=== PATIENT | female | born 1935 | race Caucasian/White ===

== ENCOUNTER 2016-05-18 10:09 | Observation (INO) | payer MEDICARE, BC ==
--- NOTE | 2016-05-18 11:21 | RAD ---
INDICATION: TIA symptoms COMPARISON: None TECHNIQUE: Noncontrast axial source images were acquired from the skull base to the vertex. FINDINGS: Ventricles/sulci: There is mild age-related cortical atrophy with compensatory dilatation of the CSF spaces. Brain parenchyma: There is mild periventricular and subcortical white matter change compatible with chronic ischemia. Intracranial hemorrhage:None. Extra-axial spaces: There are no abnormal extra axial fluid collections or evidence of extra-axial mass. Calvarium: There is no calvarial fracture or other calvarial abnormality. Scalp: There is no evidence of scalp or extracalvarial soft tissue abnormality. Paranasal sinuses/mastoid: The paranasal sinuses and mastoid air cells are clear. Other: None. IMPRESSION: CORTICAL ATROPHY WITH CHRONIC MICROVASCULAR ISCHEMIC CHANGES. NO ACUTE FINDINGS.
[2016-05-18 11:46] LABS: Hematocrit 41 % (35-47); Hemoglobin 13.7 g/dl (12.0-16.0); Mean Corpuscular HGB Conc 34 g/dl (31-36); Mean Corpuscular Hemoglobin 29 pg (27-31); Mean Corpuscular Volume 85 fL (80-97); Mean Platelet Volume 9 um3 (7.4-10.4); Red Blood Count 4.75 10^6/ul (4.0-5.4); Red Cell Distribution Width 14 % (10.5-15); White Blood Count 7.8 10^3/ul (3.5-10.8)
[2016-05-18 12:10] LABS: Albumin 3.9 g/dL (3.2-5.2); BUN/Creatinine Ratio 23.3 (8-20); EGFR Non-African American 51.3 (>60); Globulin 2.7 g/dL (2-4); Potassium 4.1 mmol/L (3.5-5.0); Total Bilirubin 1.8 mg/dL (0.2-1.0); Total Protein 6.6 g/dL (6.4-8.9)
[2016-05-18] MEDS ORDERED: Metoprolol Tartrate IV* 1 MG/ML 5 ML VIAL IV ONE (13:02)
[2016-05-18] MEDS ORDERED: Aspirin TAB* 325 MG PO ONE (13:02)
[2016-05-18] MEDS ORDERED: Ondansetron INJ* 2 MG/ML VIAL IV PRN (14:07)
[2016-05-18] MEDS: Lisinopril TAB* 10 MG PO SCH (14:40)
[2016-05-18] MEDS: amLODIPine TAB* 5 MG PO SCH (14:40)
--- NOTE | 2016-05-18 15:32 | RAD ---
HISTORY: Hypertension COMPARISONS: July 31, 2002 VIEWS:1: Single frontal portable view of the chest at 3:05 PM FINDINGS: LINES AND TUBES: None. CARDIOMEDIASTINAL SILHOUETTE: The cardiomediastinal silhouette is normal for portable technique. PLEURA: The costophrenic angles are sharp. No pleural abnormalities are noted. LUNG PARENCHYMA: There is hyperinflation. ABDOMEN: The upper abdomen is clear. There is no subphrenic gas. BONES AND SOFT TISSUES: No bone or soft tissue abnormalities are noted. IMPRESSION: NO ACTIVE CARDIOPULMONARY DISEASE.
[2016-05-18] MEDS ORDERED: hydrALAZINE IV* 20 MG/ML VIAL IV SLOW PU PRN (16:04)
--- NOTE | 2016-05-18 16:46 | RAD ---
Indication: Left-sided numbness. Sagittal and axial T1, axial T2, FLAIR, diffusion and susceptibility weighted images of the brain were obtained. Ventricular structures are midline. No midline shift is noted. There is central and cortical atrophy noted. There is no evidence of intracranial mass or hemorrhage. No other high or low signal lesions are identified. No restriction of diffusion is noted. Periventricular signal abnormalities consistent with chronic ischemic White matter change is noted. Mastoid air cells and paranasal sinuses are unremarkable. IMPRESSION: FINDINGS CONSISTENT WITH SMALL VESSEL ISCHEMIC DISEASE. NO ACUTE CHANGES ARE NOTED.
[2016-05-18] MEDS: Acetaminophen TAB* 325 MG PO PRN (18:06)
[2016-05-18] MEDS: Carbamide Peroxide 6.5% OTIC* 15 ML BTL LEFT EAR SCH ×2 (19:27→21:20)
--- NOTE | 2016-05-18 19:43 | HP ---
HISTORY AND PHYSICAL: DATE OF ADMISSION: 05/18/16 PRIMARY CARE PROVIDER: Dr. Herrmann. ATTENDING PHYSICIAN WHILE IN THE HOSPITAL: Williams Ly MD*(report dictated by Gus Blue NP). CONSULTING NEUROLOGIST: Dr. Dumont. CHIEF COMPLAINT: 1. Left-sided decreased sensation. 2. Elevated blood pressure. HISTORY OF PRESENT ILLNESS: Ms. Cadet is an 80-year-old female patient with a history of hypertension, atrial fibrillation in the past, history of kidney stones and bladder cancer. She comes in today stating that over the last week, she had a cystoscopy for what she says a spot on her bladder. Since then, she has been having difficulty with her blood pressure. It has been elevated at times despite her taking her medications. She states that she has had a headache off and on, and in addition to this, has had some left-sided ear pain and swelling of the left gland. She does state that she noticed today she woke up, her blood pressure was very elevated. Yesterday, she took actually 80 mg of her lisinopril thinking that that would bring it down but her blood pressure remained elevated despite this and it has been all week, it was up in the 200 systolically. She did not take her lisinopril today because she took so much yesterday. She was concerned and went to her primary to get help with her blood pressure management. She was evaluated by her primary. The primary was concerned because she was complaining mostly today of having a left-sided decreased sensation in the face, arm, and the leg. She says that she has not had any facial drooping. There has been no weakness to one side and there has been no trouble with gait or balance and there has been no trouble with speech. She came to the ER. She was evaluated. It was noted that her blood pressures again were in the 200s and the hospitalist service was asked to evaluate for admission. She also does admit to having spots in her left eye. She denies having any chest pain and she does admit to having some dyspnea on exertion, but no orthopnea, nocturnal dyspnea, or swelling in her legs. PAST MEDICAL HISTORY: Significant for: 1. Hypertension. 2. Nephrolithiasis. 3. AFib. 4. Bladder cancer. PAST SURGICAL HISTORY: 1. She has had an appendectomy. 2. Laparoscopic cholecystectomy. 3. Cataracts. 4. Nephrectomy. 5. Cystoscopy. HOME MEDICATIONS: Include: 1. Sodium citrate and citric acid 10 mg p.o. b.i.d. 2. Multivitamin 1 tablet daily. 3. Metoprolol XL 50 mg daily. 4. Lisinopril 20 mg daily. 5. Aspirin 81 mg daily. ALLERGIES TO MEDICATIONS: Include SULFA. FAMILY HISTORY: Mother had a history of heart disease and colon cancer. Father had a history of liver disease. SOCIAL HISTORY: She does not smoke. She drinks a glass of wine daily. Surrogate decision maker is her , Lion. REVIEW OF SYSTEMS: There is no documented fever. She denied having any significant weight change. There was no double vision. There is no ear discharge. She denies having any rhinorrhea. There is no sore throat. There is no thyroid enlargement. She did admit to having some dyspnea on exertion. No chest pain. No orthopnea. No nocturnal dyspnea. There is no abdominal pain. There is no nausea. There is no vomiting. There was no dysuria. No frequency. No seizure. No loss of consciousness. No pruritus and no skin ulcerations. Review of 14 systems completed, all others negative. PHYSICAL EXAMINATION GENERAL: At this time, Ms. Cadet is an 80-year-old female patient. She is sitting in the ER stretcher. She does not appear to be in any acute distress. She is awake and alert. She is oriented x3. VITAL SIGNS: Blood pressure 204/107 with a pulse of 75, respirations 18, O2 sat 97%, and temperature 97.8. HEENT: Head is atraumatic and normocephalic. Eyes: EOMs intact. Sclerae are anicteric and not pale. Throat: Oral mucosa appears to be moist. No oropharyngeal erythema. NECK: Supple. LUNGS: Clear to auscultation. No wheezes, rales, or rhonchi. HEART: Sounds S1, S2. Regular rate and rhythm. No murmurs, rubs, or gallops. ABDOMEN: Soft, flat, and nontender. Bowel sounds present. EXTREMITIES: Pulses 2+ throughout. She is able to move all 4 extremities with 5/5 strength. NEUROLOGIC: The patient is awake, alert, and oriented x3. Her speech is clear. Tongue is midline. Hoe Runner are equal. Rmysgv-ys-bisz intact bilaterally. Heel-to- valle intact bilaterally. She did have some sensation deficit on the left side subjectively at this point. SKIN: Grossly intact. LABORATORY DATA AND DIAGNOSTIC STUDIES: Today revealed a WBC of 7.8, RBC of 4.75, hemoglobin 13.7, hematocrit of 41, platelet count 233. INR 0.96. PTT 28.7. Sodium was 140, potassium 4.1, chloride of 107, bicarb 27, BUN 24, creatinine of 1.03, glucose 101, lactic 0.9, calcium 10. Total bilirubin 1.8, AST 14, ALT 10, alk phos 51. Troponin 0. Albumin 3.9. She had an EKG obtained today, which showed sinus bradycardia at a rate of 58. She had T-wave flattening in 1, 2, and 3 and aVF; inversion in V4 and V5 and biphasics in V6. It was reviewed with the previous, it is similar. The biphasic T waves in V6 is new. There are no other significant changes from her previous EKG. Brain CT obtained today showed cortical atrophy with chronic microvascular ischemic change. No acute findings. Old medical records were reviewed. ASSESSMENT AND PLAN: Ms. Cadet is an 80-year-old female patient coming in to the ER today with complaints of decreased sensation to her left side. On evaluation in the ER, it was noted that her blood pressures were in the 200s, it is now 193/84. Hospitalist service was asked to evaluate in admission due to the elevated blood pressure and concern for hypertensive urgency and focal neuro findings. She will be admitted under observation status for: 1. Hypertensive urgency: At this point, I would like to get her blood pressure in the 160 range. I will go ahead and just give her Norvasc now and give her lisinopril. She did not take this. She got 5 of Lopressor already. We will monitor. If this does not help, I will add on p.r.n. hydralazine and will continue to follow. I suspect the numbness she is having is from the blood pressure. I will get an echo as well. 2. Left-sided decreased sensation: I will go ahead and check an MRI on the patient. At this point, we will get neuro checks, lipid panel, A1c. Aspirin has been started. Neuro consult. In addition to this, place her on telemetry and we will get an MRI. 3. Atrial fibrillation: Again, she has a history of this. She is in sinus rhythm now, we will monitor on telemetry and will follow. 4. Bladder cancer: Follow up with her primary. 5. Kidney stones: Follow up with her primary. 6. DVT prophylaxis: I am going to place her on SCDs. I do not want to place her on heparin with her blood pressure being in the 200s. 7. Code status: Full code. 8. Fluids, electrolytes, and nutrition: She can be on a heart healthy diet. TIME SPENT: Time spent on the admission was approximately 60 minutes; greater than half the time was spent [id number] with the patient obtaining my history and physical, other half the time spent going over the plan of care with the patient and implementing plan of care. I did discuss the plan of care with my attending, Dr. Ly; he is in agreement. GUS BLUE NP CC: Dr. Herrmann; Dr. Dumont * [id number]/[facility] #: [id number] MTDTami
[2016-05-18 20:03] LABS: Urine Bacteria Absent (Absent); Urine Bilirubin Negative (Negative); Urine Glucose Negative (Negative); Urine Nitrite Negative (Negative)
[2016-05-18] MEDS: Heparin VIAL(*) 5000 UNITS/ML VIAL (FIVE THOUSAND) SUBCUT SCH (21:20)
--- NOTE | 2016-05-19 00:18 | CONS ---
NEUROLOGY CONSULTATION REPORT: DATE OF CONSULT: 05/18/16 REQUESTING PROVIDER: Gus Blue NP PRIMARY CARE PHYSICIAN: Dr. Tomasz Herrmann. REASON FOR CONSULT: Left-sided numbness. HISTORY OF PRESENT ILLNESS: The patient is an 80-year-old right-handed female with history of hypertension, who has been having unusually elevated blood pressure since she had a cystoscopy last week. Along with that, she had some intermittent headache and also some pain and discomfort around the left sub- mandibular area and swelling of a left gland and also pain in the ears. She went to her primary care physician today, who sent her to the ER because of the concern of report of some numbness in the left side of the face and probably arm. Upon conversation with the patient, however, she did not report a clear "numbness" in the arms or legs, but felt that the left side of her face probably feels a bit different compared to the right side. She denies any other associated symptoms such as no blurry vision, dysarthria, dizziness, weakness in the arms and legs. In the ED her blood pressure was found to be high with systolic in the range of 170 to 200 mmHg. PAST MEDICAL HISTORY: 1. Hypertension. 2. AFib. 3. Possibly bladder cancer. 4. Kidney stone. 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 Laparoscopic cholecystectomy. 2. Appendectomy. 3. Nephrectomy of the left side due to a benign cyst. 4. Cataract surgery. MEDICATIONS: Include at home: 1. Multivitamin. 2. Vitamin C. 3. Metoprolol XL 50 mg daily. 4. Lisinopril 20 mg p.o. daily. 5. Aspirin 81 mg p.o. daily. ALLERGIES: To SULFA DRUGS. FAMILY HISTORY: There is a history of heart disease and cancer in her mother. No clear neurological history in the family. SOCIAL HISTORY: No history of smoking. She drinks a glass of wine almost daily. REVIEW OF SYSTEMS: Complete review of systems was performed and other than what mentioned in HPI is negative. PHYSICAL EXAM: Temperature 97.5, pulse rate 60, respiratory rate 16, O2 sat 99% , blood pressure 209/107. On neurological exam, the patient is awake, alert, and oriented x3. Pupils are symmetric and reactive to light. Extraocular movements are intact. Visual aguilera are intact to confrontation. Face is symmetric. Tongue is midline. Palate elevates upwards. V1 to V3 are intact to light touch and pinprick on the right side. On the left side, there is a slight decrease to pinprick sensation in the V1 and V2 distribution. There is some mild tenderness in the left submandibular area but no clear lymph node was palpated. Strength is 5/5 throughout. There is no pronator drift. V1 to V3 are intact to light touch and pinprick on the right side. On the left side, her response to sensory exam is inconsistent and there is sometimes decreased sensation in some parts of the arm compared to the right. Sensation is intact to lower extremities bilaterally. [id number] is intact. Rapid alternative movements are intact. DIAGNOSTIC STUDIES/LAB DATA: WBC 7.8, hemoglobin 13.7, hematocrit 41. Sodium 141, potassium 4.1, BUN 24, creatinine 1.03. Urine is negative. INR is 0.96. Imaging: An MRI of the brain shows findings consistent with small vessel ischemic disease with no acute changes. ASSESSMENT AND PLAN: An 80-year-old female with history of hypertensive urgency , presented with symptoms of vague sensory change in the left side of the face and probably somewhat in the arm. On neurological exam, there are no clear findings suggestive of a central pathology. MRI is negative for an acute stroke but some small vessel ischemic changes were found. There is a mild tenderness around the left parotid gland, or probably in the submandibular area on the left side. She probably may need some more imaging investigation such as soft tissue CT of the neck. Otherwise, there are no clear neurological deficits concerning for vascular events at this time. CC: Dr. Tomasz Herrmann* [id number]/[facility] #: [id number] MTDD
[2016-05-19] MEDS: Acetaminophen TAB* 325 MG PO PRN (03:29)
[2016-05-19 06:06] LABS: Hematocrit 37 % (35-47); Hemoglobin 12.7 g/dl (12.0-16.0); Mean Corpuscular HGB Conc 35 g/dl (31-36); Mean Corpuscular Hemoglobin 29 pg (27-31); Mean Corpuscular Volume 85 fL (80-97); Mean Platelet Volume 9 um3 (7.4-10.4); Red Blood Count 4.33 10^6/ul (4.0-5.4); Red Cell Distribution Width 14 % (10.5-15); White Blood Count 5.8 10^3/ul (3.5-10.8)
[2016-05-19] MEDS: Heparin VIAL(*) 5000 UNITS/ML VIAL (FIVE THOUSAND) SUBCUT SCH ×2 (06:07→15:59)
[2016-05-19 06:27] LABS: BUN/Creatinine Ratio 21.9 (8-20); Calcium 9.4 mg/dL (8.6-10.3); EGFR African American 71.6 (>60); EGFR Non-African American 55.6 (>60); HDL Cholesterol 43.4 mg/dL; Potassium 3.6 mmol/L (3.5-5.0)
--- NOTE | 2016-05-19 08:28 | RAD ---
HISTORY: Left parotid and submandibular tenderness, left facial numbness COMPARISONS: None TECHNIQUE: Multiple contiguous axial CT scans were obtained of the neck without intravenous contrast, with coronal and sagittal multiplanar reformations. FINDINGS: The study is limited by the lack of intravenous contrast. This limits evaluation of the solid organs and vasculature. BRAIN AND ORBITS: The visualized brain and orbits are normal. PARANASAL SINUSES: There is mucosal thickening of a sphenoethmoidal air cell on the right SALIVARY GLANDS: The parotid glands, submandibular glands, sublingual glands are normal. There is no appreciable sialolithiasis or salivary ductal dilatation, though evaluation of the distal ducts is limited by streak artifact from dental hardware. NASAL CAVITY/NASOPHARYNX: The nasal cavity and nasopharynx are normal. ORAL CAVITY/OROPHARYNX: The oral cavity is obscured by streak artifact from dental amalgam. The visualized oral cavity and oropharynx are unremarkable. LARYNGEAL APPARATUS/HYPOPHARYNX: The laryngeal apparatus and hypopharynx are normal. UPPER AIRWAY/UPPER ESOPHAGUS: The visualized upper airway and esophagus are normal. LUNG APICES: The lung apices are clear. THYROID GLAND: There are multiple thyroid nodules measuring up to 0.7 cm m in size. The thyroid is heterogeneous and somewhat atrophic. LYMPH NODES: There is no lymphadenopathy by size criteria. VASCULATURE: The vasculature is unremarkable. BONES AND SOFT TISSUES: Degenerative changes are noted most pronounced at C5-C6. OTHER: None. IMPRESSION: 1. NO APPRECIABLE SIALOLITHIASIS OR SALIVARY DUCTAL DILATATION. 2. MULTIPLE THYROID NODULES. RECOMMEND CORRELATION WITH DEDICATED IMAGING OF THE THYROID.
[2016-05-19] MEDS: Lisinopril TAB* 10 MG PO SCH (08:37)
[2016-05-19] MEDS: amLODIPine TAB* 5 MG PO SCH (08:38)
[2016-05-19] MEDS: Carbamide Peroxide 6.5% OTIC* 15 ML BTL LEFT EAR SCH (08:40)
[2016-05-19] MEDS ORDERED: Aspirin Low Dose CHEW TAB* 81 MG PO SCH (09:00)
[2016-05-19] MEDS ORDERED: Metoprolol Succinate XL TAB* 50 MG PO SCH (09:00)
--- NOTE | 2016-05-19 13:32 | PN ---
Progress Note - Progress Note SOAP: 05/19/16 neurology progress note 80 yo chronic HTN, chronic afib, admitted after finding herself hypertensive on home check (SBP up to 200s) and in context of headaches, resolved sensory symptoms (billed as numbness; she was seen by dr lackey over the weekend; his consult noted more vague pain and sensory issues; she tells me today it was neck pain, and also mentions feeling an eye blink discrepancy in the context of remotely operated redundant eylid folds). She had no hard lateralizing or focal complaints or exam findings, and negative CT/MRI; she was not felt to have had a publishing manager vascular event. She is on a baby ASA at baseline. Asked to eval by [facility] team re discussion for possible nursing home anticoag.no use of gait assist devices. Her neuro exam is non localizing; she has redundant eyelid folds Chem, cbc, aic, lipids are all normal; she had a normal ESR 09/11. Neck CT was neg for salivary stones or issues (done for facial sensory pains/complaints as above); cxr neg; mri brain neg (reviewed and modest microvasc disease and couple tiny microbleeds only; no acute stroke) i/p: 80 yo presenting with resolved headaches and poorly localizing pain/sensory complaints in context of chronic HTN. Exam and imaging negative; concur with colleague that does not sounds like a stroke or TIA. Nonetheless, she has a history of afib, and is a reasonable candidate for nursing home use of a NOAC for stroke primary prevention, same as with chronic nursing home BP control; the [facility] hospital attending and I reviewed these issues with the patient and her , and the [facility] team will coordinate further discussion with the patients PMD. From a neuro perspective she can be discharged home.
--- NOTE | 2016-05-19 16:37 | ECHO ---
Patient: CARMELA WALL [facility] Rec#: [id number] : 1935 Date: 05/19/2016 Age: 80y Height: 167.64 cm / 66.0 in Weight: 71.21 kg / 156.9 lbs Sex: F BSA: 1.8 Room#: [facility] Admit Date#: 05/18/2016 Type: Inpatient Referring: Gus Blue NP Reading: Kendall Santiago MD [employer]: Kostas Eric RDCS Transthoracic Echocardiogram Indication: HTN BP: 129/67 HR: 71 Rhythm: NSR Findings History: HTN,AFIB Technical Comments: The study quality is fair. Left Ventricle: The left ventricular chamber size is normal. Mild concentric left ventricular hypertrophy is observed. Global left ventricular wall motion and contractility are within normal limits. There is normal left ventricular systolic function. The estimated ejection fraction is 55-60%. Abnormal left ventricular diastolic filling is observed, consistent with impaired relaxation. Left Atrium: The left atrial chamber size is normal. Right Ventricle: The right ventricular cavity size is normal. The right ventricular global systolic function is normal. Right Atrium: The right atrial cavity size is normal. Aortic Valve: The aortic valve is trileaflet. There is no evidence of aortic regurgitation. There is no evidence of aortic stenosis. Mitral Valve: The mitral valve leaflets appear normal. There is no evidence of mitral regurgitation. There is no evidence of mitral stenosis. Tricuspid Valve: The tricuspid valve structure is not well visualized. Pulmonic Valve: The pulmonic valve structure is not well visualized. Pericardium: There is no pericardial effusion. Aorta: There is no dilatation of the ascending aorta. There is no dilatation of the aortic arch. There is no dilation of the aortic root. Pulmonary Artery: The main pulmonary artery is not well visualized. Venous: The venous system is not well visualized. The inferior vena cava is not visualized. Summary: There was not any prior study for comparison. Conclusions Global left ventricular wall motion and contractility are within normal limits. There is normal left ventricular systolic function. The estimated ejection fraction is 55-60%. Abnormal left ventricular diastolic filling is observed, consistent with impaired relaxation. There is no evidence of aortic regurgitation. There is no evidence of mitral regurgitation. The tricuspid valve structure is not well visualized. There is no pericardial effusion. There was not any prior study for comparison. Measurements Name Value Normal Range RVIDd (AP) 2D 2.2 cm (0.9 - 2.6) RVDdMajor (2D) 2.8 cm (2.2 - 4.4) RAd ISD 4CH 4.1 cm (3.4 - 4.9) RA (A4C)W 2.8 cm (2.9 - 4.6) IVSd (2D) 1.3 cm (0.6 - 1) LVPWd (2D) 1.1 cm (0.6 - 1) LVIDd (2D) 5.1 cm (3.6 - 5.4) LVIDs (2D) 3.4 cm - LV FS (2D) 33 % (25 - 45) Aortic Annulus 1.8 cm (1.4 - 2.6) Ao root diameter (2D) 2.9 cm (2.1 - 3.5) Ascending Ao 2.8 cm (2.1 - 3.4) Aortic arch 1.7 cm (1.8 - 3.4) LA dimension (AP) 2D 3.7 cm (2.3 - 3.8) LAd ISD 4CH 4.5 cm (2.9 - 5.3) LA ISD 4CH W 2.8 cm (2.5 - 4.5) Name Value Normal Range LA ESV SP 4CH (A/L) 33 ml - LA ESV SP 2CH (A/L) 41 ml - LA ESV BP (A/L) 37 ml - LA ESV BP (A/L) index 20.66 ml/m2 - LA ESV SP 4CH (MOD) 31 ml - LA ESV SP 2CH (MOD) 39 ml - Name Value Normal Range MV E-wave Vmax 0.56 m/sec - MV deceleration time 239 msec - MV A-wave Vmax 0.76 m/sec - MV E:A ratio 0.74 ratio - LV septal e' Vmax 0.04 m/sec - LV lateral e' Vmax 0.04 m/sec - LV E:e' septal ratio 14 ratio - LV E:e' lateral ratio 14 ratio - Name Value Normal Range LVOT diameter 1.9 cm - LVOT Vmax 0.9 m/sec - Name Value Normal Range PV Vmax 0.64 m/sec -
[2016-05-19 16:49] VITALS: BP 128/64
[2016-05-19] MEDS ORDERED: Rivaroxaban TAB(*) 20 MG TAB PO SCH (17:00)
[2016-05-19 18:41] LABS: TSH (Thyroid Stimulating Horm) 4.98 mcIU/mL (0.34-5.60)
--- NOTE | 2016-05-20 04:27 | DS ---
DISCHARGE SUMMARY: DATE OF ADMISSION: 05/18/16 DATE OF DISCHARGE: 05/19/16 DISCHARGE DIAGNOSES: 1. Hypertensive urgency. 2. Atypical facial pain. 3. Incidental findings of thyroid nodules. SECONDARY DIAGNOSES: 1. Hypertension. 2. Nephrolithiasis. 3. Atrial fibrillation. 4. History of bladder carcinoma. 5. Report of severe sepsis secondary to urinary tract infection in July 2015 at [facility]. 6. Status post appendectomy. 7. Status post lap cholecystotomy. 8. Status post cataract surgery. 9. Status post nephrectomy. 10. Status post cystoscopy. MEDICATION LIST: 1. Lisinopril 20 mg p.o. daily. 2. Metoprolol succinate 50 mg p.o. daily. 3. Multivitamin 1 tablet p.o. daily. 4. Sodium citrate and citric acid 10 mg p.o. b.i.d. NEW MEDICATIONS: 1. Amlodipine 10 mg p.o. daily. 2. Xarelto 20 mg p.o. daily. HOSPITAL COURSE: Mrs. Cadet is an 80-year-old lady with a past medical history as stated above who presented to the emergency room with complaints of left-sided ear pain and a "prickly" sensation on her left side of her face. The patient is also having elevated blood pressures at home. The day prior to admission, the systolic blood pressure was in the 200s and she took an extra dose of her lisinopril, but her numbers remained elevated. She contacted her PCP and was referred to the emergency room. For more details about her presentation, I refer you to her history and physical. The patient had the CT of the brain that showed cortical atrophy with chronic microvascular ischemic changes, but no acute findings. She also had an MRI of the brain that showed findings consistent with small vessel ischemic disease, no acute changes were noted. The patient was admitted for blood pressure control as her blood pressure in the emergency room was 210/93. She was seen consultation by Neurology (Dr. Dumont) and his impression was that the patient was an 80-year-old female with history of hypertensive urgency that presented with symptoms of vague sensory change in the left side of the face and probably somewhat in her arms. On neurological exam, there are no clear findings suggestive of a central pathology. MRI is negative for an acute stroke, but some small vessel ischemic changes were found. There is mild tenderness around the left parotid gland or probably in the submandibular area on the left side. He recommended a soft tissue CT of the neck, but otherwise he did not feel there was a clear neurological deficit concerning for vascular event at that time. Amlodipine was added to the patient's regimen with good blood pressure control and the plan is to continue it as outpatient. The patient did have a CT of the soft tissues of the neck without contrast that showed no appreciable sialolithiasis or ductal dilatation. She had an incidental findings of multiple thyroid nodules and she can have dedicated imaging of the thyroid as outpatient. Please note her TSH level was added to her labs but the result is pending at the time of this dictation and will need to be followed as outpatient. On physical examination, the patient does have some pain on palpation of the TMJ area and this may be the source of her discomfort. The patient has a history of atrial fibrillation. She states that she was diagnosed more than 15 years ago, she does not even remember which doctor diagnosed her. She is on aspirin at this time and her CHADS2 score at this time is 4 (hypertension, age, sex). I discussed with the patient the indication for anticoagulation. She was seen in consultation by Neurology (Dr. Payne). He concurred with Dr. Dumont that her symptoms did not sound like a stroke or TIA, but nonetheless she has a history of AFib, is a reasonable candidate for long-term use of a NOAC for a stroke primary prevention same with chronic long-term blood pressure control. I discussed the case with her primary care provider, Dr. Herrmann, and after reviewing risks and benefits, the patient is in agreement with starting Xarelto for stroke prevention. She was educated about the risks of bleeding, but she understands that at this time, the benefit surpasses the risks. The patient also had a transthoracic echocardiogram that showed ejection fraction of 55% to 60%, no evidence of aortic regurgitation, no evidence of mitral regurgitation, no pericardial effusion. The patient was felt to be stable for discharge at this time to follow up with Dr. Herrmann on 05/22/16 at 1:00 p.m. PHYSICAL EXAMINATION: Vital signs: Temperature 98.2, heart rate is 66, respiratory rate is 16, oxygen saturation 98% on room air, blood pressure is 128 /64. General: The patient is a pleasant elderly lady, lying in bed, in no acute distress. CVS: Normal S1 and S2. Regular rate and rhythm. Chest: Breath sounds present bilaterally with no added sounds. Abdomen: Soft, nontender, nondistended. Bowel sounds are present. Extremities: No edema. Neuro: She is alert, awake, oriented x3. Able to move all 4 extremities. DIET: Healthy diet. ACTIVITY: Activities as tolerated. DISPOSITION: To home. STATUS WHILE IN THE HOSPITAL: Observation. Please keep in mind that this is a summarized version of this patient's hospital stay. If you need more information, please feel free to call me at or please obtain the full medical records. TIME SPENT: Approximately 45 minutes were spent to complete this discharge. CC: Dr. Herrmann; Dr. Kendall, [place], [place], phone number [phone]* [id number]/CPS #: [id number] MTDD
--- NOTE | 2016-05-30 21:18 | ED ---
Baltazar Perez Alok, scribed for Emile Salinas MD on 05/18/16 at 1327 . Hypertension - HPI Summary HPI Summary: 80 y/o female presents to the ED with concern of her hypertension. She states that for the last few days her BP has been fairly high. On top of this, pt also reports feeling some chills, as well as some tingling sensations on the left side of her face, ear and neck. Additionally, pt reports SOB on exertion for the past 2-3 days. She denies any trouble speaking, ambulating, chest pain, fever, diaphoresis, abd pain, diarrhea as well as no recent changes in medication. She states that she normally takes 20 mg of Lisinopril per day, but took twice as much yesterday in order to try and lower BP to little effect. - History of Current Complaint Chief Complaint: EDShortnessOfBreath Stated Complaint: HIGH BP Time Seen by Provider: 05/18/16 11:02 Hx Obtained From: Patient Onset/Duration: Started Days Ago, Atraumatic, Still Present Associated Signs & Symptoms: SOB - Allergies/Home Medications Allergies/Adverse Reactions: Allergies Allergy/AdvReac Type Severity Reaction Status Date / Time Sulfa Drugs Allergy Intermediate Hives Verified 05/18/16 10:12 Home Medications: Home Medications Aspirin EC Low Dose* [Ecotrin EC Low Dose*] 81 mg PO DAILY 05/18/16 [History Confirmed 05/18/16] Lisinopril TAB* [Prinivil TAB*] 20 mg PO DAILY 05/18/16 [History Confirmed 05/18] Sodium Citrate & Citric Acid [Virtrate-2 500-334 mg/5Ml] 10 mg PO BID 05/18/16 [ History Confirmed 05/18/16] PMH/Surg Hx/FS Hx/Imm Hx - Surgical History Surgery Procedure, Year, and Place: RIGHT TKA. CHOLECYSTECTOMY. RIGHT KIDNEY REMOVED @ age 24. ureter stent placement & removal Jan 2016 Infectious Disease History: No Infectious Disease History: Denies: Traveled Outside the [place] in Last 30 Days - Family History Known Family History: Negative: Diabetes - Social History Alcohol Use: None Alcohol Amount: one wine Substance Use Type: Reports: None Smoking Status (MU): Former Smoker Review of Systems Positive: Chills. Negative: Fever, Skin Diaphoresis Negative: Erythema Negative: Sore Throat Negative: Chest Pain Positive: Shortness Of Breath. Negative: Cough Negative: Abdominal Pain, Vomiting, Diarrhea, Nausea Negative: dysuria, hematuria Negative: Myalgia, Edema Negative: Rash Neurological: Other - Negative: Dizziness Positive: Paresthesia - tingling left side of face Negative: Anxious All Other Systems Reviewed And Are Negative: Yes Physical Exam - Summary Physical Exam Summary: Constitutional: Well-developed, Well-nourished, Alert. (-) Distressed Skin: Warm, Dry HENT: Normocephalic; Atraumatic Eyes: Conjunctiva normal Neck: Musculoskeletal ROM normal neck. (-) JVD, (-) Stridor, (-) Tracheal deviation Cardio: Rhythm regular, rate normal, Heart sounds normal; Intact distal pulses; The pedal pulses are 2+ and symmetric. Radial pulses are 2+ and symmetric. (-) Murmur Pulmonary/Chest wall: Effort normal. (-) Respiratory distress, (-) Wheezes, (-) Rales Abd: Soft, (-) Tenderness, (-) Distension, (-) Guarding, (-) Rebound Musculoskeletal: (-) Edema Lymph: (-) Cervical adenopathy Neuro: Alert, Oriented x3 Psych: Mood and affect Normal Triage Information Reviewed: Yes Vital Signs On Initial Exam: Initial Vitals Temp Pulse Resp BP Pulse Ox 97.8 F 64 16 196/98 100 05/18/16 10:13 05/18/16 10:13 05/18/16 10:13 05/18/16 10:13 05/18/16 10:13 Vital Signs Reviewed: Yes - Jerome Coma Scale Coma Scale Total: 15 Diagnostics - Vital Signs Vital Signs Temp Pulse Resp BP Pulse Ox 05/18/16 12:00 57 162/76 96 05/18/16 11:45 58 158/79 96 05/18/16 11:30 59 164/79 99 05/18/16 11:21 60 187/86 98 05/18/16 11:00 58 98 05/18/16 10:48 59 183/74 99 05/18/16 10:35 62 95 05/18/16 10:33 210/93 05/18/16 10:13 97.8 F 64 16 196/98 100 - Laboratory Lab Results: Lab Results 05/18/16 05/18/16 05/18/16 Range/Units 10:40 10:40 10:40 WBC 7.8 (3.5-10.8) 10^3/ul RBC 4.75 (4.0-5.4) 10^6/ul Hgb 13.7 (12.0-16.0) g/dl Hct 41 (35-47) % MCV 85 (80-97) fL MCH 29 (27-31) pg MCHC 34 (31-36) g/dl RDW 14 (10.5-15) % Plt Count 232 (150-450) 10^3/ul MPV 9 (7.4-10.4) um3 Neut % (Auto) 68.9 (38-83) % Lymph % (Auto) 16.6 L (25-47) % Hardee % (Auto) 8.1 (1-9) % Eos % (Auto) 5.4 (0-6) % Baso % (Auto) 1.0 (0-2) % Absolute Neuts (auto) 5.4 (1.5-7.7) 10^3/ul Absolute Lymphs (auto) 1.3 (1.0-4.8) 10^3/ul Absolute Monos (auto) 0.6 (0-0.8) 10^3/ul Absolute Eos (auto) 0.4 (0-0.6) 10^3/ul Absolute Basos (auto) 0.1 (0-0.2) 10^3/ul Absolute Nucleated RBC 0 10^3/ul Nucleated RBC % 0 INR (Anticoag Therapy) (0.89-1.11) APTT (26.0-36.3) seconds Sodium 141 (133-145) mmol/L Potassium 4.1 (3.5-5.0) mmol/L Chloride 107 (101-111) mmol/L Carbon Dioxide 27 (22-32) mmol/L Anion Gap 7 (2-11) mmol/L BUN 24 (6-24) mg/dL Creatinine 1.03 H (0.51-0.95) mg/dL Est GFR ( Amer) 66.0 (>60) Est GFR (Non-Af Amer) 51.3 (>60) BUN/Creatinine Ratio 23.3 H (8-20) Glucose 101 H (70-100) mg/dL Lactic Acid 0.9 (0.5-2.0) mmol/L Calcium 10.0 (8.6-10.3) mg/dL Total Bilirubin 1.80 H (0.2-1.0) mg/dL AST 14 (13-39) U/L ALT 10 (7-52) U/L Alkaline Phosphatase 61 (34-104) U/L Troponin I 0.00 (<0.04) ng/mL Total Protein 6.6 (6.4-8.9) g/dL Albumin 3.9 (3.2-5.2) g/dL Globulin 2.7 (2-4) g/dL Albumin/Globulin Ratio 1.4 (1-3) 05/18/16 Range/Units 10:40 WBC (3.5-10.8) 10^3/ul RBC (4.0-5.4) 10^6/ul Hgb (12.0-16.0) g/dl Hct (35-47) % MCV (80-97) fL MCH (27-31) pg MCHC (31-36) g/dl RDW (10.5-15) % Plt Count (150-450) 10^3/ul MPV (7.4-10.4) um3 Neut % (Auto) (38-83) % Lymph % (Auto) (25-47) % Hardee % (Auto) (1-9) % Eos % (Auto) (0-6) % Baso % (Auto) (0-2) % Absolute Neuts (auto) (1.5-7.7) 10^3/ul Absolute Lymphs (auto) (1.0-4.8) 10^3/ul Absolute Monos (auto) (0-0.8) 10^3/ul Absolute Eos (auto) (0-0.6) 10^3/ul Absolute Basos (auto) (0-0.2) 10^3/ul Absolute Nucleated RBC 10^3/ul Nucleated RBC % INR (Anticoag Therapy) 0.96 (0.89-1.11) APTT 28.7 (26.0-36.3) seconds Sodium (133-145) mmol/L Potassium (3.5-5.0) mmol/L Chloride (101-111) mmol/L Carbon Dioxide (22-32) mmol/L Anion Gap (2-11) mmol/L BUN (6-24) mg/dL Creatinine (0.51-0.95) mg/dL Est GFR ( Amer) (>60) Est GFR (Non-Af Amer) (>60) BUN/Creatinine Ratio (8-20) Glucose (70-100) mg/dL Lactic Acid (0.5-2.0) mmol/L Calcium (8.6-10.3) mg/dL Total Bilirubin (0.2-1.0) mg/dL AST (13-39) U/L ALT (7-52) U/L Alkaline Phosphatase (34-104) U/L Troponin I (<0.04) ng/mL Total Protein (6.4-8.9) g/dL Albumin (3.2-5.2) g/dL Globulin (2-4) g/dL Albumin/Globulin Ratio (1-3) Result Diagrams: 05/18/16 10:40 05/18/16 10:40 Lab Statement: Any lab studies that have been ordered have been reviewed, and results considered in the medical decision making process. - CT CT Brain CT Interpretation: Positive (See Comments) - IMPRESSION: CORTICAL ATROPHY WITH CHRONIC MICROVASCULAR ISCHEMIC CHANGES. NO ACUTE FINDINGS. CT Interpretation Completed By: Radiologist - EKG 10:25 Cardiac Rate: Bradycardia EKG Rhythm: Sinus Bradycardia - 58 bpm Hypertension Course/Dx - Diagnoses Provider Diagnoses: Hypertensive urgency, CVA (cerebral vascular accident), SOB (shortness of breath) - Critical Care Time Critical Care Time: 30-74 min - 35 minutes Discharge - Discharge Plan Condition: Stable Disposition: ADMITTED TO [facility] Referrals: Tomasz Herrmann MD [Primary Care Provider] - The documentation as recorded by the Baltazar anderson Alok accurately reflects the service I personally performed and the decisions made by , Emile Salinas MD.
== END 2016-05-19 17:45 | disposition home or self-care (01) ==
LOC: ED 10:09 → MEDTELE 13:33 → ED 14:36
PROVIDERS: ADMIT Internal Medicine; ATTEND Internal Medicine
DX: I16.0 Hypertensive urgency (principal); R51 Headache; E04.1 Nontoxic single thyroid nodule; M62.81 Muscle weakness (generalized); I48.91 Unspecified atrial fibrillation; R00.1 Bradycardia, unspecified; I67.82 Cerebral ischemia; Z85.51 Personal history of malignant neoplasm of bladder; Z88.2 Allergy status to sulfonamides; Z79.01 Long term (current) use of anticoagulants; Z79.899 Other long term (current) drug therapy
CPT/HCPCS: 36415; 70450; 70490; 70551; 71010; 80048; 80053; 80061; 81003; 81015; 83036; 83605; 84443; 84484; 85025; 85610; 85730; 87086; 93005; 93306; 96372; 96374; 99284; A9270-GY; G0378; J1644; J3490

== ENCOUNTER 2016-10-02 00:39 | Observation (INO) | payer MEDICARE, BC ==
[2016-10-02] MEDS ORDERED: NS 0.9% 1000 ML* 1,000 ML IV ONE (00:59)
[2016-10-02 01:25] LABS: Hematocrit 34 % (35-47); Hemoglobin 11.6 g/dl (12.0-16.0); Mean Corpuscular HGB Conc 34 g/dl (31-36); Mean Corpuscular Hemoglobin 30 pg (27-31); Mean Corpuscular Volume 89 fL (80-97); Mean Platelet Volume 9 um3 (7.4-10.4); Red Blood Count 3.87 10^6/ul (4.0-5.4); Red Cell Distribution Width 13 % (10.5-15); White Blood Count 7.3 10^3/ul (3.5-10.8)
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
[2016-10-02 01:40] LABS: Albumin 3.2 g/dL (3.2-5.2); BUN/Creatinine Ratio 25.2 (8-20); C Reactive Protein 4.03 mg/L (< 5.00); Calcium 9.1 mg/dL (8.6-10.3); EGFR African American 65.8 (>60); EGFR Non-African American 51.2 (>60); Globulin 2.1 g/dL (2-4); Magnesium 1.8 mg/dL (1.9-2.7); Potassium 3.8 mmol/L (3.5-5.0); Total Bilirubin 0.8 mg/dL (0.2-1.0); Total Protein 5.3 g/dL (6.4-8.9)
[2016-10-02] MEDS ORDERED: Acetaminophen TAB* 325 MG PO PRN (02:12)
[2016-10-02] MEDS ORDERED: NS 0.9% 1000 ML* 1,000 ML IV SCH (02:15)
[2016-10-02] MEDS ORDERED: Melatonin (NF) 3 MG TAB PO PRN (02:15)
[2016-10-02] MEDS ORDERED: Ondansetron INJ* 2 MG/ML VIAL IV PRN (02:16)
--- NOTE | 2016-10-02 02:20 | HP ---
H&P (Free Text) History and Physical: PCP: Jose Daniel Herrmann MD Date/Time of Evaluation: 10/02/2016 0200 CC: rectal bleeding HPI: Mrs Cadet is an 81YO female HX AFIB who self-D/C'd her rivaroxaban 3weeks ago due to bleeding after cystoscopy followed by an episode of epistaxis. [facility] went [facility] for [facility]oscopy with polypectomy x2, a 10mm cecal polyp removed with hot snare and clipped and a 6mm transverse polyp removed with hot BX forceps. Diverticulosis and mild internal hemorrhoids were also noted. She did well the remainder of the day until ~1900 when she developed abdominal cramping and a total of 7 bright red bowel movements for which she called the number given by [facility] and was advised to come straight to the ED. Upon arrival to [facility], she felt the urge to defecate and was assisted to the restroom where she had an 8th blood bowel movement resulting in syncope followed by 2 bloody stools once back in her ED room. Pressures were initially hypotensive, but rebounded with IVFs. She has developed some nausea in the ED, but no emesis, chest pain, SOB, palpitations, or other complaints. PMedHx bladder CA s/p cystoscopic resection & planning to start BCG instillation soon, followed by urology in [place] pAFIB self D/C'd rivaroxaban 3weeks ago 2nd post-cystoscopic bleeding and an episode of epistaxis HTN urolithiasis s/p R nephrectomy for infection & stones diverticulosis internal hemorrhoids Ambulatory Orders Metoprolol Succinate XL TAB* [Toprol XL TAB*] 50 mg PO DAILY 01/08/13 Multivitamins/Minerals TAB* [Thera M Plus TAB*] 1 tab PO DAILY 03/25/16 Lisinopril TAB* [Prinivil TAB 10 MG*] 20 mg PO DAILY 05/18/16 Allergies Sulfa Drugs Allergy (Intermediate, Verified 10/02/16 00:41) Hives SWELLING OF EYES AND TONGUE PSurgHx cataract extraction cholecystectomy R nephrectomy 2nd infected stone at age 24 appendectomy R TKA SocHx: no tobacco, 1 glass wine daily, no recreational drugs; lives with her ; DNR/I code status FamHx: Mother: late 80s, CAD, colon CA; Father: age 51, hepatitis & liver failure ROS: as above, otherwise reviewed and all were negative Constitutional: NAD, normally developed, well-nourished elderly female vitals: Vital Signs Temp 36.4 C 10/02/16 00:49 Pulse 70 10/02/16 01:31 Resp 13 10/02/16 01:31 BP 95/54 10/02/16 01:30 Pulse Ox 96 10/02/16 01:31 Intake & Output 10/01/16 10/01/16 10/02/16 11:59 23:59 11:59 Weight 70.307 kg Other: Date of Last Bowel 10/02/16 Movement Estimated Stool Amount Large HEENM: atraumatic; sclera/conjunctiva: non-icteric/clear; hearing: clinically intact; oropharynx: clear, mucosa tacky Neck: soft tissue: non-tender; thyroid: normal Pulmonary: clear to auscultation bilaterally, good aeration, no accessory muscle use CV: RR/RR, normal S1S2, no carotid bruit, no jugular venous distention, 2+ B DP/ PT, no edema Abdominal: soft, non-distended, non-tender, no rebound/guarding/rigidity, normoactive bowel sounds, no hepatosplenomegaly or masses, no costovertebral angle tenderness Musculoskeletal: general: grossly intact; gait: unsafe to ambulate Integumental: normal appearance and texture of exposed skin, no over pallor Psychiatric orientation: AA&O to PPS affect: calm mood: cooperative eye contact: good content: reliable responses: timely insight: good to fair Testing: Lab Results 10/02/16 10/02/16 10/02/16 Range/Units 01:13 01:13 01:13 WBC 7.3 (3.5-10.8) 10^3/ul RBC 3.87 L (4.0-5.4) 10^6/ul Hgb 11.6 L (12.0-16.0) g/dl Hct 34 L (35-47) % MCV 89 (80-97) fL MCH 30 (27-31) pg MCHC 34 (31-36) g/dl RDW 13 (10.5-15) % Plt Count 210 (150-450) 10^3/ul MPV 9 (7.4-10.4) um3 Neut % (Auto) 56.0 (38-83) % Lymph % (Auto) 28.6 (25-47) % [place] % (Auto) 10.1 H (1-9) % Eos % (Auto) 4.1 (0-6) % Baso % (Auto) 1.2 (0-2) % Absolute Neuts (auto) 4.1 (1.5-7.7) 10^3/ul Absolute Lymphs (auto) 2.1 (1.0-4.8) 10^3/ul Absolute Monos (auto) 0.7 (0-0.8) 10^3/ul Absolute Eos (auto) 0.3 (0-0.6) 10^3/ul Absolute Basos (auto) 0.1 (0-0.2) 10^3/ul Absolute Nucleated RBC 0.01 10^3/ul Nucleated RBC % 0.1 INR (Anticoag Therapy) (0.89-1.11) Sodium 139 (133-145) mmol/L Potassium 3.8 (3.5-5.0) mmol/L Chloride 110 (101-111) mmol/L Carbon Dioxide 25 (22-32) mmol/L Anion Gap 4 (2-11) mmol/L BUN 26 H (6-24) mg/dL Creatinine 1.03 H (0.51-0.95) mg/dL Est GFR ( Amer) 65.8 (>60) Est GFR (Non-Af Amer) 51.2 (>60) BUN/Creatinine Ratio 25.2 H (8-20) Glucose 155 H (70-100) mg/dL Lactic Acid 1.8 (0.5-2.0) mmol/L Calcium 9.1 (8.6-10.3) mg/dL Magnesium 1.8 L (1.9-2.7) mg/dL Total Bilirubin 0.80 (0.2-1.0) mg/dL AST 15 (13-39) U/L ALT 11 (7-52) U/L Alkaline Phosphatase 55 (34-104) U/L C-Reactive Protein 4.03 (< 5.00) mg/L Total Protein 5.3 L (6.4-8.9) g/dL Albumin 3.2 (3.2-5.2) g/dL Globulin 2.1 (2-4) g/dL Albumin/Globulin Ratio 1.5 (1-3) Lipase 54 (11.0-82.0) U/L Blood Type Antibody Screen 10/02/16 10/02/16 Range/Units 01:13 01:13 WBC (3.5-10.8) 10^3/ul RBC (4.0-5.4) 10^6/ul Hgb (12.0-16.0) g/dl Hct (35-47) % MCV (80-97) fL MCH (27-31) pg MCHC (31-36) g/dl RDW (10.5-15) % Plt Count (150-450) 10^3/ul MPV (7.4-10.4) um3 Neut % (Auto) (38-83) % Lymph % (Auto) (25-47) % [place] % (Auto) (1-9) % Eos % (Auto) (0-6) % Baso % (Auto) (0-2) % Absolute Neuts (auto) (1.5-7.7) 10^3/ul Absolute Lymphs (auto) (1.0-4.8) 10^3/ul Absolute Monos (auto) (0-0.8) 10^3/ul Absolute Eos (auto) (0-0.6) 10^3/ul Absolute Basos (auto) (0-0.2) 10^3/ul Absolute Nucleated RBC 10^3/ul Nucleated RBC % INR (Anticoag Therapy) 0.98 (0.89-1.11) Sodium (133-145) mmol/L Potassium (3.5-5.0) mmol/L Chloride (101-111) mmol/L Carbon Dioxide (22-32) mmol/L Anion Gap (2-11) mmol/L BUN (6-24) mg/dL Creatinine (0.51-0.95) mg/dL Est GFR ( Amer) (>60) Est GFR (Non-Af Amer) (>60) BUN/Creatinine Ratio (8-20) Glucose (70-100) mg/dL Lactic Acid (0.5-2.0) mmol/L Calcium (8.6-10.3) mg/dL Magnesium (1.9-2.7) mg/dL Total Bilirubin (0.2-1.0) mg/dL AST (13-39) U/L ALT (7-52) U/L Alkaline Phosphatase (34-104) U/L C-Reactive Protein (< 5.00) mg/L Total Protein (6.4-8.9) g/dL Albumin (3.2-5.2) g/dL Globulin (2-4) g/dL Albumin/Globulin Ratio (1-3) Lipase (11.0-82.0) U/L Blood Type A Positive Antibody Screen Pending ECG, personally reviewed: NSR rate 65, mild ST depression V3-6 Impression: 81F presenting with lower GI bleeding post colonoscopy w/ polypectomy x2 DIAGNOSIS & PLAN Primary lower GI bleed post-colonoscopy w/ polypectomy x2 : suspect dislodged cecal clip : IVFs : type & screen : telemetry : supplemental oxygen : NPO diet : GI consult in AM : supportive care solitary kidney : close monitoring of renal function : prevention of significant prolonged hypotension, if possible Secondary bladder CA : continue outpatient follow up pAFIB : [id number] 2, intermediate risk of 4% per annum : anticoagulation currently inappropriate 2nd acute bleed, but HTN : hold outpatient regimen for now, monitor & re-institute once appropriate urolithiasis : no acute issues : continue outpatient follow up Admission Rational: inpatient for lower GI bleed s/p colonoscopy w/ BX not anticipated to be adequately resolved to allow for discharged w/i 48h DVTp: SCDs, no anticoagulation in acute bleed Code Status: DNR/I HCP:
[2016-10-02 05:54] LABS: Urine Bacteria Absent (Absent); Urine Bilirubin Negative (Negative); Urine Glucose Negative (Negative); Urine Nitrite Negative (Negative)
[2016-10-02] MEDS ORDERED: Omeprazole CAP* 20 MG PO SCH (06:00)
[2016-10-02 06:07] LABS: Hematocrit 29 % (35-47); Hemoglobin 9.7 g/dl (12.0-16.0); Mean Corpuscular HGB Conc 34 g/dl (31-36); Mean Corpuscular Hemoglobin 30 pg (27-31); Mean Corpuscular Volume 89 fL (80-97); Mean Platelet Volume 9 um3 (7.4-10.4); Red Blood Count 3.23 10^6/ul (4.0-5.4); Red Cell Distribution Width 13 % (10.5-15); White Blood Count 8.7 10^3/ul (3.5-10.8)
[2016-10-02 06:22] LABS: BUN/Creatinine Ratio 26.4 (8-20); Calcium 8.5 mg/dL (8.6-10.3); EGFR Non-African American 62.2 (>60); Potassium 3.9 mmol/L (3.5-5.0)
--- NOTE | 2016-10-02 10:53 | CONS ---
CC: Dr. Herrmann; Dr. Cornelio Jain, [facility], [place], [place] * GASTROENTEROLOGY CONSULTATION DATE OF CONSULT: 10/02/2016. REASON FOR CONSULT: Rectal bleeding, status post colonoscopy polypectomy. HISTORY OF PRESENT ILLNESS: This is a very pleasant, 81-year-old woman who yesterday, , October 01, underwent a routine surveillance colonoscopy. By the colonoscopic note, two polyps were identified and removed; one from the cecum was removed with the hot snare and an Endoclip was placed, and a smaller polyp from the transverse colon was removed with the hot biopsy forceps. There was also report of diverticulosis and internal hemorrhoids. Postprocedure, the patient apparently did well and was discharged home, but by the late afternoon developed urgent bowel movements with rectal blood. She was having abdominal cramps. She states that she had perhaps seven bowel movements, all containing dark high volume blood and for that reason came to the emergency room. Here in the emergency room, she had a near syncopal episode while expelling rectal blood. She was treated with IV fluids and stabilized. She was admitted overnight and since about midnight last night has had no further bowel movements or bleeding. The patient denies any abdominal pain at this point. PAST MEDICAL HISTORY: Atrial fibrillation. She had previously been on Xarelto , but that was discontinued about a month ago. She has a history of bladder cancer with cystoscopy treated locally, a right nephrectomy for kidney stones, and hypertension. AMBULATORY MEDICINES: 1. Metoprolol. 2. Multivitamin. 3. Lisinopril. 4. She also takes an adult aspirin daily, although had held that for five days prior to her colonoscopy. FAMILY HISTORY: Notable for a mother who had coronary disease and colon cancer. REVIEW OF SYSTEMS: She denies any melena, nausea, or vomiting. She denies any fevers, chills, or prior history of rectal bleeding. PHYSICAL EXAM: General: She is a pleasant, elderly woman appearing comfortable and in no acute distress. Vital Signs: Blood pressure 105/46, heart rate 62 and irregular, her temperature is 97.3. She is slightly pale. She appears clinically euvolemic. Her lungs are clear. Cardiac exam: Regular rhythm without murmur. Abdomen: Soft without tenderness or distention. Bowel sounds are normoactive and there is no organomegaly. DIAGNOSTIC STUDIES/LAB DATA: Admission hemoglobin of 11.6, it was checked four hours later and was 9.7, INR of 0.98, BUN of 23, creatinine of 0.87. IMPRESSION: This is an 81-year-old woman who is one day status post colonoscopy polypectomy using electrocautery, coming in with rectal bleeding. This is almost certainly a postpolypectomy bleed, likely from the cecal polypectomy site given the need for Endoclip placement implying some level of difficulty with hemostasis. She has had a fair amount of bleeding, although has maintained relative stability to her hemoglobin and has not had any further bleeding for the last five or six hours. Hopefully, this will cease spontaneously and this was discussed with the patient. PLAN/RECOMMENDATIONS: We will keep her on a clear liquid diet. She will be monitored for 24 hours. If rebleeding were to happen again, then we did discuss colonoscopy to achieve hemostasis during this admission. If she remains stable, then perhaps discharge tomorrow would be appropriate. We will hold her aspirin. [id number]/[facility] #: [id number] HI
[2016-10-02 11:46] LABS: Hematocrit 25 % (35-47); Hemoglobin 8.4 g/dl (12.0-16.0)
--- NOTE | 2016-10-02 13:35 | PN ---
Subjective Date of Service: 10/02/16 Interval History: Last BM about 2 AM per patient and her . No pain. Overall feels well. Good appetite. Objective Active Medications: Acetaminophen (Tylenol Tab*) 650 mg PO Q6H PRN PRN Reason: FEVER/PAIN Melatonin (Melatonin (Nf)) 3 mg PO BEDTIME PRN; Protocol PRN Reason: Sleep Omeprazole (Prilosec Cap*) 20 mg PO DAILY@0600 MANUELITO Last Admin: 10/02/16 04:39 Dose: 20 mg Ondansetron HCl (Zofran Inj*) 4 mg IV Q6H PRN PRN Reason: NAUSEA Vital Signs 10/02/16 10/02/16 10/02/16 02:15 02:30 02:45 Temperature Pulse Rate 69 72 Respiratory 17 15 Rate Blood Pressure 115/55 119/51 120/47 (mmHg) O2 Sat by Pulse 100 100 Oximetry 10/02/16 10/02/16 10/02/16 03:00 03:15 03:30 Temperature 97.3 F Pulse Rate 81 72 85 Respiratory 15 16 17 Rate Blood Pressure 118/53 139/55 135/89 (mmHg) O2 Sat by Pulse 100 100 100 Oximetry 10/02/16 10/02/16 10/02/16 03:45 04:00 04:20 Temperature 97.6 F Pulse Rate 81 79 Respiratory 18 15 Rate Blood Pressure 141/58 125/58 (mmHg) O2 Sat by Pulse 100 100 Oximetry 10/02/16 10/02/16 10/02/16 04:33 07:09 08:00 Temperature 97.3 F 97.3 F Pulse Rate 72 62 Respiratory 16 20 16 Rate Blood Pressure 139/55 105/46 (mmHg) O2 Sat by Pulse 100 98 Oximetry 10/02/16 11:06 Temperature Pulse Rate 57 Respiratory 20 Rate Blood Pressure 118/61 (mmHg) O2 Sat by Pulse 100 Oximetry Oxygen Devices in Use Now: None Appearance: Alert, partly up in bed. In good spirits. Looks comfortable. Respiratory: Symmetrical Chest Expansion and Respiratory Effort, Clear to Auscultation, Clear to Percussion Cardiovascular: NL Sounds; No Murmurs; No JVD, RRR, No Edema, - Abdominal: NL Sounds; No Tenderness; No Distention, No Hepatosplenomegaly, - Extremities: No Edema, No Clubbing, Cyanosis, - Skin: No Rash or Ulcers, No Nodules or Sclerosis, - Neurological: Alert and Oriented x 3, NL Sensation Result Diagrams: 10/02/16 11:30 10/02/16 05:41 Assess/Plan/Problems-Billing Assessment: - Patient Problems (1) GI bleeding Current Visit: Yes Status: Acute Code(s): K92.2 - GASTROINTESTINAL HEMORRHAGE, UNSPECIFIED SNOMED Code(s): 73137126 Comment: S/P colonoscopy with bx in [place] 10/01. Not currently bleeding. CBC 10/03, possible discharge then. (2) HTN (hypertension) Current Visit: Yes Status: Acute Code(s): I10 - ESSENTIAL (PRIMARY) HYPERTENSION SNOMED Code(s): 00416781 Comment: Lisinopril on hold. (3) Bladder cancer Current Visit: Yes Status: Acute Comment: Under treatment in [place], [place].
[2016-10-03 06:07] LABS: Hematocrit 26 % (35-47); Hemoglobin 8.9 g/dl (12.0-16.0); Mean Corpuscular HGB Conc 34 g/dl (31-36); Mean Corpuscular Hemoglobin 30 pg (27-31); Mean Corpuscular Volume 88 fL (80-97); Mean Platelet Volume 9 um3 (7.4-10.4); Red Blood Count 3.01 10^6/ul (4.0-5.4); Red Cell Distribution Width 13 % (10.5-15); White Blood Count 5.2 10^3/ul (3.5-10.8)
[2016-10-03 08:07] VITALS: BP 140/66
--- NOTE | 2016-10-03 08:13 | DCNOTE ---
Subjective Date of Service: 10/03/16 Interval History: No c/o. No BM since my visit yesterday. Anxious to go hoem. Walks without dizziness or SOB. Objective Active Medications: Acetaminophen (Tylenol Tab*) 650 mg PO Q6H PRN PRN Reason: FEVER/PAIN Ondansetron HCl (Zofran Inj*) 4 mg IV Q6H PRN PRN Reason: NAUSEA Vital Signs 10/02/16 10/02/16 10/02/16 11:06 15:22 19:07 Temperature 97.5 F 97.4 F Pulse Rate 57 56 67 Respiratory 20 17 17 Rate Blood Pressure 118/61 125/64 133/69 (mmHg) O2 Sat by Pulse 100 99 100 Oximetry 10/02/16 10/02/16 10/02/16 19:09 19:26 19:54 Temperature 97.4 F Pulse Rate Respiratory 18 16 Rate Blood Pressure 133/69 (mmHg) O2 Sat by Pulse 100 Oximetry 10/02/16 10/03/16 10/03/16 19:56 00:12 02:09 Temperature 97.5 F Pulse Rate 89 Respiratory 16 18 Rate Blood Pressure 137/68 (mmHg) O2 Sat by Pulse 96 96 Oximetry 10/03/16 10/03/16 10/03/16 02:11 04:07 07:33 Temperature 98.1 F 97.7 F Pulse Rate 73 58 Respiratory 18 16 18 Rate Blood Pressure 140/73 (mmHg) O2 Sat by Pulse 96 98 Oximetry 10/03/16 08:06 Temperature Pulse Rate Respiratory Rate Blood Pressure 140/66 (mmHg) O2 Sat by Pulse Oximetry Oxygen Devices in Use Now: None Appearance: Alert, partly up in bed. In good spirits. Looks comfortable. Eyes: No Scleral Icterus Ears/Nose/Mouth/Throat: Clear Oropharnyx, Mucous Membranes Moist Respiratory: Symmetrical Chest Expansion and Respiratory Effort, Clear to Auscultation, Clear to Percussion Abdominal: NL Sounds; No Tenderness; No Distention, No Hepatosplenomegaly, - Extremities: No Edema, No Clubbing, Cyanosis, - Skin: No Rash or Ulcers, No Nodules or Sclerosis, - Neurological: Alert and Oriented x 3, NL Sensation Result Diagrams: 10/03/16 05:43 10/02/16 05:41 Assess/Plan/Problems-Billing Assessment: - Patient Problems (1) GI bleeding Current Visit: Yes Status: Acute Code(s): K92.2 - GASTROINTESTINAL HEMORRHAGE, UNSPECIFIED SNOMED Code(s): 13136458 Comment: S/P colonoscopy with bx in [place] 10/01. Not currently bleeding. Hct up to 26. Discharge now, (2) HTN (hypertension) Current Visit: Yes Status: Acute Code(s): I10 - ESSENTIAL (PRIMARY) HYPERTENSION SNOMED Code(s): 09630648 Comment: Re-start lisinopril at home, hold metoprolol until she sees Dr. Herrmann. (3) Bladder cancer Current Visit: Yes Status: Acute Comment: Under treatment in [place], [place]. Status and Disposition: Discharge now. Fup Dr. Herrmann.
[2016-10-03] MEDS ORDERED: Metoprolol Succinate XL TAB* 50 MG PO SCH (09:00)
--- NOTE | 2016-10-03 09:01 | DCNOTE ---
Subjective Date of Service: 10/03/16 Interval History: Amended note. Objective Active Medications: Acetaminophen (Tylenol Tab*) 650 mg PO Q6H PRN PRN Reason: FEVER/PAIN Metoprolol Succinate (Toprol Xl Tab*) 50 mg PO DAILY MANUELITO Ondansetron HCl (Zofran Inj*) 4 mg IV Q6H PRN PRN Reason: NAUSEA Vital Signs 10/02/16 10/02/16 10/02/16 11:06 15:22 19:07 Temperature 97.5 F 97.4 F Pulse Rate 57 56 67 Respiratory 20 17 17 Rate Blood Pressure 118/61 125/64 133/69 (mmHg) O2 Sat by Pulse 100 99 100 Oximetry 10/02/16 10/02/16 10/02/16 19:09 19:26 19:54 Temperature 97.4 F Pulse Rate Respiratory 18 16 Rate Blood Pressure 133/69 (mmHg) O2 Sat by Pulse 100 Oximetry 10/02/16 10/03/16 10/03/16 19:56 00:12 02:09 Temperature 97.5 F Pulse Rate 89 Respiratory 16 18 Rate Blood Pressure 137/68 (mmHg) O2 Sat by Pulse 96 96 Oximetry 10/03/16 10/03/16 10/03/16 02:11 04:07 07:33 Temperature 98.1 F 97.7 F Pulse Rate 73 58 Respiratory 18 16 18 Rate Blood Pressure 140/73 (mmHg) O2 Sat by Pulse 96 98 Oximetry 10/03/16 10/03/16 08:00 08:06 Temperature Pulse Rate Respiratory 18 Rate Blood Pressure 140/66 (mmHg) O2 Sat by Pulse Oximetry Oxygen Devices in Use Now: None Result Diagrams: 10/03/16 05:43 10/02/16 05:41 Assess/Plan/Problems-Billing Assessment: - Patient Problems (1) GI bleeding Current Visit: Yes Status: Acute Code(s): K92.2 - GASTROINTESTINAL HEMORRHAGE, UNSPECIFIED SNOMED Code(s): 28400783 Comment: S/P colonoscopy with bx in [place] 10/01. Not currently bleeding. Hct up to 26. Discharge now, (2) HTN (hypertension) Current Visit: Yes Status: Acute Code(s): I10 - ESSENTIAL (PRIMARY) HYPERTENSION SNOMED Code(s): 89677208 Comment: Re-start metoprolol XL now, hold lisinopril until she sees Dr. Herrmann. (3) Bladder cancer Current Visit: Yes Status: Acute Comment: Under treatment in [place], [place]. Status and Disposition: Discharge now. Fup Dr. Herrmann.
--- NOTE | 2016-10-03 11:02 | DS ---
CC: Dr. Herrmann. DISCHARGE SUMMARY: DATE OF ADMISSION: DATE OF DISCHARGE: 10/03/16. HISTORY: This 81-year-old woman was admitted with rectal bleeding just a few hours after her colono scopy with biopsy. She was having a screening colonoscopy. She did not have any syncope or lighthe adedness, chest pain or shortness of breath. She did not require any transfusions. Her hemoglobin on arrival was 11.6, it fell to 8.4, but was 8.9 on the day of discharge. She felt well. She was abl e to walk in the [place] without any shortness of breath or excessive fatigue. She was not lightheaded . She had no bleeding after about 2 a.m. on October 02. She had no bowel movements either. She has not received either of her two antihypertensive medications during the hospital stay. I am going to have her restart the lisinopril the day following discharge. She will hold the metoprolol until she sees Dr. Herrmann. FINAL DIAGNOSES: 1. GI bleeding following colonoscopy. 2. Hypertension. 3. Bladder cancer. DISCHARGE MEDICATIONS: 1. Multivitamin with mineral daily. 2. Lisinopril 20 mg daily. [id number]/[facility] [place] #: [id number]
== END 2016-10-03 09:52 | disposition home or self-care (01) ==
LOC: ED 00:39 → MEDTELE 02:09 → INTOOBSV 02:09
PROVIDERS: ADMIT Hospitalist; ATTEND Internal Medicine
DX: K91.840 Postprocedural hemorrhage of a digestive system organ or structure following a digestive system procedure (principal); Y83.8 Other surgical procedures as the cause of abnormal reaction of the patient, or of later complication, without mention of misadventure at the time of the procedure; I10 Essential (primary) hypertension; E03.9 Hypothyroidism, unspecified; C67.9 Malignant neoplasm of bladder, unspecified; R00.1 Bradycardia, unspecified; I48.91 Unspecified atrial fibrillation; Z79.01 Long term (current) use of anticoagulants; Z88.2 Allergy status to sulfonamides
CPT/HCPCS: 36415; 80048; 80053; 81003; 81015; 83605; 83690; 83735; 85014; 85018; 85025; 85027; 85610; 86140; 86850; 86900; 86901; 93005; 99291; A9270-GY; G0378

== ENCOUNTER 2017-01-10 11:15 | Emergency (ER) | payer MEDICARE, BC ==
[2017-01-10] MEDS ORDERED: amLODIPine TAB* 5 MG PO ONE ×2 (11:54→14:36)
[2017-01-10 12:07] LABS: Hematocrit 45 % (35-47); Mean Corpuscular HGB Conc 33 g/dl (31-36); Mean Corpuscular Hemoglobin 29 pg (27-31); Mean Corpuscular Volume 86 fL (80-97); Mean Platelet Volume 9 um3 (7.4-10.4); Red Blood Count 5.26 10^6/ul (4.0-5.4); Red Cell Distribution Width 14 % (10.5-15); White Blood Count 6.1 10^3/ul (3.5-10.8)
[2017-01-10 12:25] LABS: Albumin 4.3 g/dL (3.2-5.2); BUN/Creatinine Ratio 15.7 (8-20); EGFR African American 66.6 (>60); EGFR Non-African American 51.8 (>60); Globulin 2.5 g/dL (2-4); Potassium 3.9 mmol/L (3.5-5.0); Total Bilirubin 1.7 mg/dL (0.2-1.0); Total Protein 6.8 g/dL (6.4-8.9)
[2017-01-10 12:49] LABS: TSH (Thyroid Stimulating Horm) 4.51 mcIU/mL (0.34-5.60)
[2017-01-10 13:39] LABS: Urine Bacteria Absent (Absent); Urine Bilirubin Negative (Negative); Urine Glucose Negative (Negative); Urine Nitrite Negative (Negative)
--- NOTE | 2017-01-10 13:42 | RAD ---
INDICATION: Headache. COMPARISON: Comparison is made with prior MRI and CT of the brain from May 18, 2016. TECHNIQUE: Contiguous axial sections of the brain were obtained from the skull base to the vertex without contrast. FINDINGS: The ventricles, cisterns and sulci are enlarged consistent with diffuse atrophy. There are small areas of decreased density in the subcortical and periventricular white matter suggestive of mild chronic small vessel ischemic changes. There appears to be a small old lacunar infarct present within the right lentiform nucleus. No other focal abnormality or mass effect is seen. There is no evidence for hemorrhage. No significant focal osseous abnormality is seen. The visualized portion of the paranasal sinuses and mastoid air cells appear clear. IMPRESSION: 1. NO EVIDENCE FOR ACUTE INTRACRANIAL ABNORMALITY. 2. 

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
[2017-01-10 14:58] VITALS: BP 168/84
== END 2017-01-10 14:59 | disposition home or self-care (01) ==
LOC: ED 11:15
DX: I10 Essential (primary) hypertension (principal); M54.2 Cervicalgia; M79.601 Pain in right arm; C67.9 Malignant neoplasm of bladder, unspecified; E03.9 Hypothyroidism, unspecified; G43.909 Migraine, unspecified, not intractable, without status migrainosus; Z87.442 Personal history of urinary calculi; Z87.440 Personal history of urinary (tract) infections; Z90.49 Acquired absence of other specified parts of digestive tract; Z96.651 Presence of right artificial knee joint; Z98.42 Cataract extraction status, left eye; Z98.41 Cataract extraction status, right eye; Z88.2 Allergy status to sulfonamides; Z87.891 Personal history of nicotine dependence
CPT/HCPCS: 36415; 70450; 80053; 81003; 81015; 83605; 84443; 84484; 85025; 85610; 87086; 93005; 99282; A9270-GY

== ENCOUNTER 2017-06-21 10:35 | Emergency (ER) | payer MEDICARE, BC ==
[2017-06-21 11:21] VITALS: BP 146/74
--- NOTE | 2017-06-21 11:28 | UC ---
Complaint Female HPI - HPI Summary HPI Summary: Pt c/o JACKSON, pelvic pressure and generalized weakness and fatigue X 1 week. Pt is concerned that she has a UTI. Pt has history of kidney stones and bladder cancer. - History Of Current Complaint Stated Complaint: URINARY COMPLAINT Time Seen by Provider: 06/21/17 10:53 Hx Obtained From: Patient ?: No Onset/Duration: Gradual Onset, Lasting Weeks - 1, Still Present Timing: Constant Severity Initially: Mild Severity Currently: Mild Character: Dull Aggravating Factor(s): Nothing Alleviating Factor(s): Nothing Associated Signs And Symptoms: Positive: Negative - Risk Factors Ectopic Risk Factor: Negative Ovarian Torsion Risk Factor: Negative - Allergies/Home Medications Allergies/Adverse Reactions: Allergies Allergy/AdvReac Type Severity Reaction Status Date / Time Sulfa (Sulfonamide Allergy Intermediate Rash Verified 06/21/17 11:21 Antibiotics) PMH/Surg Hx/FS Hx/Imm Hx Previously Healthy: No Cardiovascular History: Hypertension GI/ History: Kidney Stones, Other - bladder cancer Other GI/ History: bladder cancer Cancer History: Other - bladder Other Cancer History: bladder - Surgical History Surgical History: Yes Surgery Procedure, Year, and Place: RIGHT TKA. CHOLECYSTECTOMY. Transurethral resection (September 2016 and 01/06/17). RIGHT KIDNEY REMOVED @ age 24. ureter stent placement & removal Jan 2016 - Family History Known Family History: Positive: Cardiac Disease, Hypertension Negative: Diabetes - Social History Occupation: Retired Lives: With Family Alcohol Use: None Alcohol Amount: one wine Substance Use Type: None Smoking Status (MU): Former Smoker Amount Used/How Often: 1/2 ppd Length of Time of Smoking/Using Tobacco: 10 years Have You Smoked in the Last Year: No When Did the Patient Quit Smoking/Using Tobacco: 03/29/1977 - Immunization History Most Recent Influenza Vaccination: 2014 Most Recent Pneumonia Vaccination: 4-5 years ago. Review of Systems Constitutional: Fatigue Skin: Negative Eyes: Blurred Vision - intermittent ENT: Negative Respiratory: Negative Cardiovascular: Negative Gastrointestinal: Other - pelvic discomfort Genitourinary: Negative Motor: Negative, Decreased ROM Neurovascular: Negative Musculoskeletal: Negative Neurological: Headache, Weakness Psychological: Negative Is Patient Immunocompromised?: No All Other Systems Reviewed And Are Negative: Yes Physical Exam Triage Information Reviewed: Yes Appearance: Well-Appearing Vital Signs: Initial Vital Signs Temp 98.2 F 06/21/17 11:14 Pulse 61 06/21/17 11:14 Resp 16 06/21/17 11:14 BP 146/74 06/21/17 11:14 Pulse Ox 100 06/21/17 11:14 Vital Signs Reviewed: Yes Eye Exam: Normal ENT Exam: Normal Neck exam: Normal Respiratory Exam: Normal Cardiovascular Exam: Normal Abdominal Exam: Normal Musculoskeletal Exam: Normal Musculoskeletal: Positive: Strength Intact Neurological Exam: Normal Psychological Exam: Normal Skin Exam: Normal Diagnostics - Laboratory Diagnostic Studies Completed/Ordered: UA: see chart Complaint Female Dx - Course Course Of Treatment: Pt has hx of bladder cancer. Have concern for recurrence of cancer, pt is scheduled to see urologist in next week. Pt denies that JACKSON is worse JACKSON ever denies unilateral weakness. - Differential Dx/Diagnosis Differential Diagnosis/HQI/PQRI: Urinary Tract Infection Provider Diagnoses: hematuria Discharge - Sign-Out/Discharge Documenting (check all that apply): Discharge - Discharge Plan Condition: Stable Disposition: HOME Patient Education Materials: Hematuria (ED), General Headache (ED) Referrals: Tomasz Herrmann MD [Primary Care Provider] - As Soon As Possible Additional Instructions: Please follow up with your PCP as soon as possible. Please keep your appointment with your urologist as scheduled. - Billing Disposition and Condition Condition: STABLE Disposition: HOME
== END 2017-06-21 11:53 | disposition home or self-care (01) ==
LOC: UCCORT 10:35
DX: R31.9 Hematuria, unspecified (principal); Z87.442 Personal history of urinary calculi; Z85.51 Personal history of malignant neoplasm of bladder; Z88.2 Allergy status to sulfonamides; I10 Essential (primary) hypertension; Z87.891 Personal history of nicotine dependence
CPT/HCPCS: 81003; 99211; G0463

== ENCOUNTER 2017-12-12 09:49 | Emergency (ER) | payer BC, MEDICARE ==
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
[2017-12-12 12:02] LABS: ABS Basophils 0 10^3/ul (0-0.2); ABS Eosinophils 0.2 10^3/ul (0-0.6); ABS Lymphocytes 1.1 10^3/ul (1.0-4.8); ABS Monocytes 0.5 10^3/ul (0-0.8); ABS Neutrophils 3.6 10^3/ul (1.5-7.7); ABS Nucleated RBC 0 10^3/ul; Eosinophil % 2.9 % (0-6); Hematocrit 40 % (35-47); Hemoglobin 13.6 g/dl (12.0-16.0); Lymphocyte % 19.5 % (25-47); Mean Corpuscular HGB Conc 34 g/dl (31-36); Mean Corpuscular Hemoglobin 30 pg (27-31); Mean Corpuscular Volume 87 fL (80-97); Mean Platelet Volume 8.6 um3 (7.4-10.4); Nucleated Red Blood Cells % 0.1; Platelet Count 206 10^3/ul (150-450); Red Blood Count 4.57 10^6/ul (4.00-5.40); Red Cell Distribution Width 14 % (10.5-15); White Blood Count 5.4 10^3/ul (3.5-10.8)
[2017-12-12 12:16] LABS: EGFR Non-African American 38.3 (>60)
[2017-12-12 12:21] LABS: INR 0.94 (0.77-1.02)
[2017-12-12] MEDS ORDERED: Iodixanol* (CONTRAST) 320 MG/ML 100 ML SDV IV ONE (12:33)
[2017-12-12] MEDS ORDERED: Labetalol IV* 5 MG/ML 20 ML VIAL IV PUSH ONE (12:48)
[2017-12-12] MEDS ORDERED: NS 0.9% 1000 ML* 1,000 ML IV ONE (12:58)
--- NOTE | 2017-12-12 13:44 | RAD ---
CPT II: CPT II Codes: 3100F INDICATION: Hypertension and headache COMPARISON: CT of the brain dated January 10, 2017 TECHNIQUE: A CT angiogram of the head and neck was performed with 80 cc of Visipaque 320. Prior to contrast injection, day noncontrast CT of the brain was acquired. Contiguous axial sections were obtained from the thoracic inlet through the [place]. Images were reconstructed in the sagittal, coronal planes and in a 3-D volume rendered format. The distal cervical internal carotid artery diameter is used as the denominater for stenosis measurement. CTA NECK: The common and internal carotid arteries are patent without hemodynamically significant stenosis. Right: Immediately below the carotid bifurcation the common carotid artery measures 7 mm in short axis diameter. There is faint calcification of the carotid bulb but the bulb measures 8 mm in short axis diameter yielding 0% degree stenosis. Left: Immediately below the carotid bifurcation the common carotid artery measures 7 mm in short axis diameter. There is faint calcification of the carotid bulb but the bulb measures 7 mm in short axis diameter yielding 0% degree stenosis. The vertebral arteries are patent without gross abnormality. 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 CTA of the brain: The internal carotid, anterior and middle cerebral arteries appear are patent without high grade stenosis or occlusion. The vertebral, basilar and posterior cerebral arteries appear patent without high grade stenosis or occlusion. The [place] is complete with bilateral posterior communicating arteries identified. No focal luminal filling defect, aneurysm or vascular malformation is seen. NON-ARTERIAL FINDINGS: Similar the prior CT of the brain, there is periventricular and subcortical white matter hypoattenuation seen on the noncontrast imaging consistent with chronic microvascular disease. IMPRESSION: 1. Normal CT angiography of the head and neck. 2. Similar to the prior CT of the brain, noncontrast imaging is consistent with mild chronic microvascular disease.
[2017-12-12 15:10] LABS: Urine Appearance Clear; Urine Blood 3+ (Negative); Urine Color Straw; Urine Ketones Negative (Negative); Urine Protein Negative (Negative); Urine Red Blood Cell 3+(>10/hpf) (Absent); Urine Specific Gravity 1.009 (1.010-1.030); Urine Urobilinogen Negative (Negative); Urine White Blood Cell 1+(6-10/hpf) (Absent)
--- NOTE | 2017-12-12 15:21 | RAD ---
HISTORY: Left leg edema TECHNIQUE: Multiple transverse and longitudinal ultrasound images were obtained of the veins of the left lower extremity using grayscale, color Doppler, and spectral Doppler imaging with and without compression and with augmentation. FINDINGS: VEINS: The common femoral vein, deep femoral vein, femoral vein and popliteal vein are compressible throughout their course, with normal flow on color Doppler imaging and normal response to augmentation on spectral Doppler imaging. SOFT TISSUES: Grossly normal. No large popliteal fossa cyst was identified. IMPRESSION: No sonographic evidence of deep vein thrombosis.
[2017-12-12] MEDS ORDERED: Labetalol TAB* 100 MG PO ONE (15:32)
[2017-12-12 16:08] VITALS: BP 169/81
== END 2017-12-12 16:06 | disposition home or self-care (01) ==
LOC: ED 09:49
DX: I10 Essential (primary) hypertension (principal); R60.0 Localized edema; E03.9 Hypothyroidism, unspecified; Z85.51 Personal history of malignant neoplasm of bladder; Z87.891 Personal history of nicotine dependence
CPT/HCPCS: 36415; 70496; 70498; 80053; 81003; 81015; 83605; 84484; 85025; 85610; 85730; 87086; 93005; 96361; 96374; 96375; 99283; A9270-GY; Q9967

== ENCOUNTER 2021-03-11 14:53 | Inpatient (IN) ==
[2021-03-11] MEDS ORDERED: Ondansetron 4 mg VIAL 2 MG/ML 2 ml VIAL IV ONE (15:57)
[2021-03-11] MEDS: NS 0.9% 1000 ml BAG 1,000 ML IV SCH ×2 (16:15→21:59)
[2021-03-11 16:41] LABS: ABS Basophils 0.1 10^3/ul (0-0.2); ABS Eosinophils 0.3 10^3/ul (0-0.6); ABS Lymphocytes 0.8 10^3/ul (1.0-4.8); ABS Monocytes 0.5 10^3/ul (0-0.8); ABS Neutrophils 5.1 10^3/ul (1.5-7.7); Eosinophil % 4.6 %; Hematocrit 38 % (35-47); Lymphocyte % 11.2 %; Mean Corpuscular HGB Conc 34 g/dL (31-36); Mean Corpuscular Hemoglobin 29 pg (27-31); Mean Corpuscular Volume 84 fL (80-97); Platelet Count 293 10^3/uL (150-450); Red Blood Count 4.52 10^6 /uL (3.70-4.87); Red Cell Distribution Width 15 % (10-15); White Blood Count 6.7 10^3/uL (3.5-10.8)
[2021-03-11 16:56] LABS: Albumin/Globulin Ratio 1.3 (1-3); Calcium 10.4 mg/dL (8.6-10.3); Globulin 3.1 g/dL (2-4); Magnesium 2.4 mg/dL (1.9-2.7); Total Bilirubin 0.6 mg/dL (0.2-1.0); Total Protein 7.1 g/dL (6.4-8.9); eGFR CKD-EPI 34.9 (>60)
[2021-03-11 17:07] LABS: Activated Partial Thrombo Time 25.4 seconds (26.0-38.0); INR 1.09 (0.86-1.15)
[2021-03-11 17:45] LABS: Potassium 4.4 mmol/L (3.5-5.0)
[2021-03-11] MEDS: HYDROmorphone 0.5 MG/0.5 ML SYRINGE IV PRN ×2 (18:45→22:46)
[2021-03-11] MEDS ORDERED: HYDROmorphone 1 MG/1 ML SYRINGE IV ONE (19:53)
[2021-03-11] MEDS: Heparin 5000 UNITS/ML 1 mL VIAL SUBCUT SCH (22:48)
[2021-03-12] MEDS: Ofloxacin 0.3% (Ear Drop) BTL BOTH EARS SCH ×3 (01:06→21:09)
[2021-03-12 01:26] LABS: Urine Appearance Turbid; Urine Bilirubin Negative (Negative); Urine Blood 3+ (Negative); Urine Color Yellow; Urine Glucose Negative (Negative); Urine Ketones Negative (Negative); Urine Nitrite Positive (Negative); Urine Protein 2+(100 mg/dL) (Negative); Urine Specific Gravity 1.011 (1.002-1.030); Urine Urobilinogen Negative (Negative)
[2021-03-12 01:28] LABS: Urine Bacteria 3+ (Absent); Urine Red Blood Cell 3+(>10/hpf) (Absent); Urine Squamous Epithelial Cell Present (Absent); Urine White Blood Cell 3+(>20/hpf) (Absent)
[2021-03-12] MEDS: HYDROmorphone 0.5 MG/0.5 ML SYRINGE IV PRN (03:15)
[2021-03-12] MEDS: Heparin 5000 UNITS/ML 1 mL VIAL SUBCUT SCH (04:58)
[2021-03-12] MEDS: HYDROmorphone 1 MG/1 ML SYRINGE IV PRN ×4 (04:59→19:16)
[2021-03-12 05:50] LABS: ABS Eosinophils 0.3 10^3/ul (0-0.6); ABS Monocytes 0.6 10^3/ul (0-0.8); ABS Neutrophils 3.7 10^3/ul (1.5-7.7); Eosinophil % 5.3 %; Hematocrit 32 % (35-47); Hemoglobin 10.8 g/dL (12.0-16.0); Lymphocyte % 17.6 %; Mean Corpuscular HGB Conc 34 g/dL (31-36); Mean Corpuscular Hemoglobin 29 pg (27-31); Mean Corpuscular Volume 84 fL (80-97); Mean Platelet Volume 8.1 fL (7.4-10.4); Platelet Count 211 10^3/uL (150-450); Red Blood Count 3.74 10^6 /uL (3.70-4.87); Red Cell Distribution Width 15 % (10-15); White Blood Count 5.6 10^3/uL (3.5-10.8)
[2021-03-12 05:57] LABS: INR 1.14 (0.86-1.15)
[2021-03-12 06:10] LABS: Calcium 8.8 mg/dL (8.6-10.3); Potassium 4.7 mmol/L (3.5-5.0); eGFR CKD-EPI 47.1 (>60)
[2021-03-12] MEDS: NS 0.9% 1000 ml BAG 1,000 ML IV SCH ×3 (06:20→20:06)
[2021-03-12] MEDS ORDERED: Cefepime ADVAN 1 GM in NS 0.9% 50 ML 50 ML IVPB SCH (09:00)
[2021-03-12] MEDS: Cefepime 1 GM in Dextrose 1 GM/50 ML BAG IV SCH ×2 (09:54→21:07)
[2021-03-12] MEDS ORDERED: ceFAZolin 2 GM PREMIX 2 GM/50 ML BAG ONE (16:44)
[2021-03-12] MEDS ORDERED: Propofol 10 MG/ML 20 ML BTL ONE (16:55)
[2021-03-12] MEDS ORDERED: Lidocaine 2% PF 5 ML VIAL ONE (16:56)
[2021-03-12] MEDS ORDERED: fentaNYL 250 mcg/5 ml 50 MCG/ML 5 ml VIAL (250 MCG) ONE (16:58)
[2021-03-12] MEDS ORDERED: Phenylephrine 40 mcg/mL 10mL (400mcg) SYRINGE ONE ×2 (17:23→17:59)
[2021-03-12] MEDS ORDERED: EPHEDrine (Pressors) 50 MG/ML VIAL ONE (17:36)
[2021-03-12] MEDS ORDERED: Bupivacaine 0.5% 50 ML MDV VIAL ONE (17:45)
[2021-03-12] MEDS ORDERED: Ondansetron 4 mg VIAL 2 MG/ML 2 ml VIAL ONE (17:48)
[2021-03-12] MEDS ORDERED: HYDROmorphone 0.5 MG/0.5 ML SYRINGE ONE (19:15)
[2021-03-13] MEDS: NS 0.9% 1000 ml BAG 1,000 ML IV SCH (03:30)
[2021-03-13 06:09] LABS: ABS Eosinophils 0.3 10^3/ul (0-0.6); ABS Lymphocytes 0.7 10^3/ul (1.0-4.8); ABS Monocytes 0.7 10^3/ul (0-0.8); ABS Neutrophils 5.4 10^3/ul (1.5-7.7); Hematocrit 28 % (35-47); Hemoglobin 9.6 g/dL (12.0-16.0); Lymphocyte % 9.3 %; Mean Corpuscular HGB Conc 34 g/dL (31-36); Mean Corpuscular Hemoglobin 29 pg (27-31); Mean Corpuscular Volume 85 fL (80-97); Mean Platelet Volume 7.8 fL (7.4-10.4); Platelet Count 179 10^3/uL (150-450); Red Blood Count 3.31 10^6 /uL (3.70-4.87); Red Cell Distribution Width 15 % (10-15); White Blood Count 7.1 10^3/uL (3.5-10.8)
[2021-03-13 06:27] LABS: INR 1.22 (0.86-1.15)
[2021-03-13 06:29] LABS: Calcium 8.6 mg/dL (8.6-10.3); Magnesium 1.8 mg/dL (1.9-2.7); Potassium 4.6 mmol/L (3.5-5.0); eGFR CKD-EPI 53.9 (>60)
[2021-03-13] MEDS ORDERED: Magnesium Sulfate IV 1GM/100ML 1 GM/100 ML BAG IV ONE ×2 (07:11→07:49)
[2021-03-13] MEDS: Ofloxacin 0.3% (Ear Drop) BTL BOTH EARS SCH ×2 (08:39→22:09)
[2021-03-13] MEDS: Cefepime 1 GM in Dextrose 1 GM/50 ML BAG IV SCH ×2 (09:46→22:08)
[2021-03-13] MEDS ORDERED: Acetaminophen IV 1 GM/100ML 100 ML IV PRN (11:37)
[2021-03-13] MEDS ORDERED: Polyethylene Glycol 3350 17 GM PACKET PO PRN (11:38)
[2021-03-13] MEDS ORDERED: Senna TAB 8.6 mg TAB PO PRN (11:38)
[2021-03-13] MEDS ORDERED: Enoxaparin 40 MG/0.4 ML SYR SUBCUT SCH (12:00)
[2021-03-14 06:15] LABS: ABS Eosinophils 0.4 10^3/ul (0-0.6); ABS Lymphocytes 0.8 10^3/ul (1.0-4.8); ABS Monocytes 0.7 10^3/ul (0-0.8); Eosinophil % 5.8 %; Hematocrit 27 % (35-47); Hemoglobin 9.4 g/dL (12.0-16.0); Lymphocyte % 11.9 %; Mean Corpuscular HGB Conc 34 g/dL (31-36); Mean Corpuscular Hemoglobin 29 pg (27-31); Mean Corpuscular Volume 84 fL (80-97); Mean Platelet Volume 7.5 fL (7.4-10.4); Platelet Count 179 10^3/uL (150-450); Red Blood Count 3.25 10^6 /uL (3.70-4.87); Red Cell Distribution Width 16 % (10-15)
[2021-03-14 06:21] LABS: INR 1.2 (0.86-1.15)
[2021-03-14 06:31] LABS: Calcium 8.8 mg/dL (8.6-10.3); Potassium 4.6 mmol/L (3.5-5.0); eGFR CKD-EPI 59.5 (>60)
[2021-03-14 07:40] VITALS: BP 144/76
[2021-03-14] MEDS: Cefepime 1 GM in Dextrose 1 GM/50 ML BAG IV SCH (08:27)
[2021-03-14] MEDS: Ofloxacin 0.3% (Ear Drop) BTL BOTH EARS SCH (08:29)
[2021-03-14] MEDS ORDERED: Senna TAB 8.6 mg TAB PO ONE (10:57)
== END 2021-03-14 10:07 | DRG 481 ==
LOC: ED 14:53 → SSU 15:23 → SUATTDRO 17:42 → EDHOLD 17:42 → SSU 19:50
PROVIDERS: ADMIT Internal Medicine; ATTEND Internal Medicine

== ENCOUNTER 2021-03-14 08:02 | Inpatient (IN) ==
[2021-03-14] MEDS: Enoxaparin 40 MG/0.4 ML SYR SUBCUT SCH (13:19)
[2021-03-14] MEDS: Senna TAB 8.6 mg TAB PO SCH (20:55)
[2021-03-14] MEDS: Ofloxacin 0.3% (Ear Drop) BTL BOTH EARS SCH ×2 (20:59→21:36)
[2021-03-15] MEDS: Magnesium Hydroxide LIQ 30 ML UDC PO PRN ×2 (08:45→15:10)
[2021-03-15] MEDS: Ofloxacin 0.3% (Ear Drop) BTL BOTH EARS SCH ×3 (09:07→22:13)
[2021-03-15] MEDS: Enoxaparin 40 MG/0.4 ML SYR SUBCUT SCH (13:48)
[2021-03-15] MEDS: Senna TAB 8.6 mg TAB PO SCH (22:11)
[2021-03-16] MEDS: Ofloxacin 0.3% (Ear Drop) BTL BOTH EARS SCH ×2 (09:05→20:52)
[2021-03-16] MEDS: Enoxaparin 40 MG/0.4 ML SYR SUBCUT SCH (13:31)
[2021-03-16] MEDS: Senna TAB 8.6 mg TAB PO SCH (20:52)
[2021-03-17 07:24] LABS: ABS Eosinophils 0.2 10^3/ul (0-0.6); ABS Lymphocytes 0.7 10^3/ul (1.0-4.8); ABS Monocytes 0.5 10^3/ul (0-0.8); ABS Neutrophils 3.8 10^3/ul (1.5-7.7); Eosinophil % 4.4 %; Hematocrit 28 % (35-47); Hemoglobin 9.6 g/dL (12.0-16.0); Lymphocyte % 13.6 %; Mean Corpuscular HGB Conc 35 g/dL (31-36); Mean Corpuscular Hemoglobin 30 pg (27-31); Mean Corpuscular Volume 86 fL (80-97); Mean Platelet Volume 6.9 fL (7.4-10.4); Platelet Count 230 10^3/uL (150-450); Red Blood Count 3.22 10^6 /uL (3.70-4.87); Red Cell Distribution Width 15 % (10-15); White Blood Count 5.3 10^3/uL (3.5-10.8)
[2021-03-17 07:40] LABS: Albumin 2.9 g/dL (3.2-5.2); Albumin/Globulin Ratio 1.2 (1-3); Calcium 9.4 mg/dL (8.6-10.3); Globulin 2.5 g/dL (2-4); Potassium 4.1 mmol/L (3.5-5.0); Total Protein 5.4 g/dL (6.4-8.9); eGFR CKD-EPI 57.3 (>60)
[2021-03-17] MEDS: Ofloxacin 0.3% (Ear Drop) BTL BOTH EARS SCH ×3 (09:02→20:54)
[2021-03-17] MEDS: Enoxaparin 40 MG/0.4 ML SYR SUBCUT SCH (13:03)
[2021-03-17] MEDS: Senna TAB 8.6 mg TAB PO SCH (20:16)
[2021-03-18] MEDS: Ofloxacin 0.3% (Ear Drop) BTL BOTH EARS SCH ×2 (08:56→20:50)
[2021-03-18] MEDS: Enoxaparin 40 MG/0.4 ML SYR SUBCUT SCH (13:04)
[2021-03-18] MEDS: Senna TAB 8.6 mg TAB PO SCH (20:50)
[2021-03-19] MEDS: Ofloxacin 0.3% (Ear Drop) BTL BOTH EARS SCH ×2 (09:43→21:19)
[2021-03-19] MEDS: Enoxaparin 40 MG/0.4 ML SYR SUBCUT SCH (13:05)
[2021-03-19] MEDS: Senna TAB 8.6 mg TAB PO SCH (21:16)
[2021-03-20] MEDS: Ofloxacin 0.3% (Ear Drop) BTL BOTH EARS SCH ×2 (08:40→21:11)
[2021-03-20] MEDS: Enoxaparin 40 MG/0.4 ML SYR SUBCUT SCH (13:01)
[2021-03-20] MEDS: Senna TAB 8.6 mg TAB PO SCH (21:06)
[2021-03-21] MEDS: Ofloxacin 0.3% (Ear Drop) BTL BOTH EARS SCH ×2 (08:19→21:30)
[2021-03-21] MEDS: Magnesium Hydroxide LIQ 30 ML UDC PO PRN (08:28)
[2021-03-21] MEDS: Enoxaparin 40 MG/0.4 ML SYR SUBCUT SCH (12:33)
[2021-03-21] MEDS: Senna TAB 8.6 mg TAB PO SCH (21:26)
[2021-03-22] MEDS ORDERED: Polyethylene Glycol 3350 17 GM PACKET PO PRN (09:29)
[2021-03-22] MEDS: Ofloxacin 0.3% (Ear Drop) BTL BOTH EARS SCH ×2 (10:08→20:42)
[2021-03-22] MEDS: Enoxaparin 40 MG/0.4 ML SYR SUBCUT SCH (13:19)
[2021-03-22] MEDS: Senna TAB 8.6 mg TAB PO SCH (20:42)
[2021-03-23] MEDS: Ofloxacin 0.3% (Ear Drop) BTL BOTH EARS SCH ×2 (09:04→20:33)
[2021-03-23] MEDS: Enoxaparin 40 MG/0.4 ML SYR SUBCUT SCH (13:59)
[2021-03-23] MEDS: Senna TAB 8.6 mg TAB PO SCH (20:33)
[2021-03-24 06:27] LABS: ABS Basophils 0.1 10^3/ul (0-0.2); ABS Eosinophils 0.3 10^3/ul (0-0.6); ABS Lymphocytes 1.1 10^3/ul (1.0-4.8); ABS Monocytes 0.6 10^3/ul (0-0.8); ABS Neutrophils 3.2 10^3/ul (1.5-7.7); Eosinophil % 6.2 %; Hematocrit 30 % (35-47); Hemoglobin 10.1 g/dL (12.0-16.0); Lymphocyte % 20.6 %; Mean Corpuscular HGB Conc 34 g/dL (31-36); Mean Corpuscular Hemoglobin 29 pg (27-31); Mean Corpuscular Volume 85 fL (80-97); Mean Platelet Volume 7.2 fL (7.4-10.4); Nucleated Red Blood Cells % 0.1; Platelet Count 374 10^3/uL (150-450); Red Blood Count 3.48 10^6 /uL (3.70-4.87); Red Cell Distribution Width 17 % (10-15); White Blood Count 5.3 10^3/uL (3.5-10.8)
[2021-03-24 06:46] LABS: Albumin 3.2 g/dL (3.2-5.2); Albumin/Globulin Ratio 1.3 (1-3); Calcium 9.8 mg/dL (8.6-10.3); Globulin 2.4 g/dL (2-4); Potassium 4.3 mmol/L (3.5-5.0); Total Bilirubin 0.8 mg/dL (0.2-1.0); Total Protein 5.6 g/dL (6.4-8.9); eGFR CKD-EPI 37.4 (>60)
[2021-03-24] MEDS: Ofloxacin 0.3% (Ear Drop) BTL BOTH EARS SCH ×2 (07:41→19:42)
[2021-03-24] MEDS: Enoxaparin 40 MG/0.4 ML SYR SUBCUT SCH (13:24)
[2021-03-24 15:41] LABS: Urine Appearance Cloudy; Urine Bilirubin Negative (Negative); Urine Blood 2+ (Negative); Urine Color Yellow; Urine Glucose Negative (Negative); Urine Ketones Negative (Negative); Urine Nitrite Positive (Negative); Urine Protein 2+(100 mg/dL) (Negative); Urine Specific Gravity 1.009 (1.002-1.030); Urine Urobilinogen Negative (Negative)
[2021-03-24 15:49] LABS: Urine Bacteria 3+ (Absent); Urine Red Blood Cell 3+(>10/hpf) (Absent); Urine White Blood Cell 3+(>20/hpf) (Absent)
[2021-03-24] MEDS: Senna TAB 8.6 mg TAB PO SCH ×2 (19:41→19:44)
[2021-03-25 06:13] LABS: Calcium 9.8 mg/dL (8.6-10.3); Potassium 4.3 mmol/L (3.5-5.0); eGFR CKD-EPI 39.8 (>60)
[2021-03-25] MEDS: Ofloxacin 0.3% (Ear Drop) BTL BOTH EARS SCH ×2 (08:29→21:03)
[2021-03-25] MEDS: Enoxaparin 40 MG/0.4 ML SYR SUBCUT SCH (11:47)
[2021-03-25] MEDS: Senna TAB 8.6 mg TAB PO SCH (21:01)
[2021-03-26 06:20] VITALS: BP 142/76
[2021-03-26] MEDS: Ofloxacin 0.3% (Ear Drop) BTL BOTH EARS SCH (08:34)
[2021-03-26] MEDS ORDERED: Amoxicillin/Clavul 500/125 TAB (Augmentin 500 mg tab) PO ONE (12:19)
[2021-03-26] MEDS: Enoxaparin 40 MG/0.4 ML SYR SUBCUT SCH (13:32)
[2021-03-26] MEDS ORDERED: Amoxicillin/Clavul 500/125 TAB (Augmentin 500 mg tab) PO SCH (21:00)
== END 2021-03-26 14:55 | disposition home health service (06) | DRG 560 ==
LOC: PMRU 11:28
PROVIDERS: ADMIT Physical Medicine & Rehabilitation; ATTEND Physical Medicine & Rehabilitation